=== PATIENT | female | born 1945 | race Caucasian/White ===

== ENCOUNTER 2021-03-27 10:06 | Outpatient (REF) | payer OTHER, SELFPAY ==
[2021-03-27 11:54] LABS: Alanine Aminotransferase 12 U/L (0-31); Albumin Level 4.4 g/dL (3.5-5.0); Alkaline Phosphatase 125 U/L (39-117); Anion Gap 14 (12-20); Aspartate Amino Transferase 20 U/L (5-31); Blood Urea Nitrogen 16 mg/dL (9-16); Calcium 9.7 mg/dL (8.4-10.2); Carbon Dioxide 30 mmol/L (22-29); Chloride 100 mmol/L (96-108); Cholesterol 156 mg/dL; Estimated Glomerular Filt Rate > 60; Glucose Fasting 141 mg/dL (60-99); HDL Cholesterol 59 mg/dL; LDL Cholesterol Calculated 74 mg/dl; Potassium 3.9 mmol/L (3.3-5.1); Sodium 140 mmol/L (135-145); Triglycerides 115 mg/dL
[2021-03-27 12:57] LABS: Estimated Average Glucose 143 mg/dL; Hemoglobin A1c % 6.6 %
== END 2021-03-27 10:07 | disposition home or self-care (01) ==
LOC: HO.HMGCLDS 10:06
PROVIDERS: PCP Internal Medicine; Visit Provider Internal Medicine
DX: E78.5 Hyperlipidemia, unspecified (principal); I10 Essential (primary) hypertension; E11.9 Type 2 diabetes mellitus without complications
CPT/HCPCS: 36415; 80053; 80061; 83036

== ENCOUNTER 2021-04-04 12:46 | Outpatient (REF) | payer OTHER, SELFPAY ==
[2021-04-04 14:01] LABS: Hemoglobin 14.6 g/dl (12.0-16.0); Mean Corpuscular HGB Conc 32.4 g/dl (31.0-35.0); Mean Corpuscular Hemoglobin 30.4 pg (27.0-33.0); Mean Corpuscular Volume 93.6 fL (80-98); Mean Platelet Volume 9.1 fL (9.4-12.3); Platelet Count 385 X10*3/uL (160-400); Red Blood Count 4.81 X10*6/uL (4.20-5.50); Red Cell Distribution Width 12.4 % (11.0-16.0); White Blood Count 11.9 X10*3/uL (4.8-10.8)
== END 2021-04-04 12:47 | disposition home or self-care (01) ==
LOC: HO.HMGCLDS 12:46
PROVIDERS: PCP Internal Medicine; Visit Provider Internal Medicine
DX: E78.5 Hyperlipidemia, unspecified (principal); I10 Essential (primary) hypertension; R63.4 Abnormal weight loss
CPT/HCPCS: 36415; 84443; 85027

== ENCOUNTER 2021-04-29 11:04 | Outpatient (REF) | payer OTHER, SELFPAY ==
[2021-05-02 00:57] LABS: TS Negative Control Passed; TS Panel A 0; TS Panel B 0; TS Positive Control Passed; TSpotTB Negative (SeeBelow)
== END 2021-04-29 11:05 | disposition home or self-care (01) ==
LOC: HO.HMGCLDS 11:04
PROVIDERS: PCP Internal Medicine; Visit Provider Internal Medicine
DX: Z11.1 Encounter for screening for respiratory tuberculosis (principal)
CPT/HCPCS: 36415; 86481

== ENCOUNTER 2021-07-31 09:44 | Outpatient (REF) | payer OTHER, SELFPAY ==
[2021-07-31 12:02] LABS: Estimated Average Glucose 151 mg/dL; Hemoglobin A1c % 6.9 %
[2021-07-31 12:07] LABS: Alanine Aminotransferase 15 U/L (0-31); Alkaline Phosphatase 117 U/L (39-117); Anion Gap 15 (12-20); Aspartate Amino Transferase 20 U/L (5-31); Bilirubin Total 0.6 mg/dL (0.0-1.0); Blood Urea Nitrogen 23 mg/dL (9-16); Calcium 9.7 mg/dL (8.4-10.2); Carbon Dioxide 27 mmol/L (22-29); Chloride 103 mmol/L (96-108); Cholesterol 163 mg/dL; Estimated Glomerular Filt Rate > 60; Glucose Fasting 148 mg/dL (60-99); HDL Cholesterol 58 mg/dL; LDL Cholesterol Calculated 80 mg/dl; Potassium 4.2 mmol/L (3.3-5.1); Sodium 141 mmol/L (135-145); Total Protein 7.2 g/dL (6.5-8.0); Triglycerides 129 mg/dL
== END 2021-07-31 09:45 | disposition home or self-care (01) ==
LOC: HO.HMGCLDS 09:44
PROVIDERS: PCP Internal Medicine; Visit Provider Internal Medicine
DX: E11.9 Type 2 diabetes mellitus without complications (principal); E78.5 Hyperlipidemia, unspecified; I10 Essential (primary) hypertension
CPT/HCPCS: 36415; 80053; 80061; 83036

== ENCOUNTER 2021-08-01 13:05 | Outpatient (REF) | payer OTHER, SELFPAY ==
[2021-08-01 14:30] LABS: Creatinine Urine 130.25 mg/dL; Microalbum/Creatinine Ratio Ur 5.3 ug/mg cr
== END 2021-08-01 13:06 | disposition home or self-care (01) ==
LOC: HO.HMGCLNP 13:05
PROVIDERS: Visit Provider Internal Medicine
DX: E11.9 Type 2 diabetes mellitus without complications (principal); E78.5 Hyperlipidemia, unspecified; I10 Essential (primary) hypertension
CPT/HCPCS: 82043

== ENCOUNTER 2021-08-16 11:30 | Outpatient (REF) | payer OTHER, SELFPAY | END 2021-08-16 11:31 | disposition home or self-care (01) | LOC: HO.LNP 11:30 | PROVIDERS: Visit Provider Internal Medicine | DX: R19.7 Diarrhea, unspecified (principal) | CPT/HCPCS: 87329 ==

== ENCOUNTER 2021-08-19 | Outpatient (REF) | payer OTHER, SELFPAY | END 2021-08-19 00:01 | LOC: HO.HMGCLNP | PROVIDERS: Visit Provider Internal Medicine | DX: E11.9 Type 2 diabetes mellitus without complications (principal); R19.7 Diarrhea, unspecified | CPT/HCPCS: 87045; 87046; 87329; 89055 ==

== ENCOUNTER 2021-09-30 10:00 | Outpatient (REF) | payer OTHER, SELFPAY ==
[2021-09-30 11:59] LABS: Hematocrit 41.2 % (37.0-47.0); Mean Corpuscular HGB Conc 31.6 g/dl (31.0-35.0); Mean Corpuscular Hemoglobin 29.9 pg (27.0-33.0); Mean Corpuscular Volume 94.7 fL (80.0-98.0); Platelet Count 384 X10*3/uL (160-400); Red Blood Count 4.35 X10*6/uL (4.20-5.50); Red Cell Distribution Width 13.7 % (11.0-16.0); White Blood Count 11.1 X10*3/uL (4.8-10.8)
[2021-09-30 12:01] LABS: Alanine Aminotransferase 20 U/L (0-31); Alkaline Phosphatase 116 U/L (39-117); Anion Gap 12 (12-20); Aspartate Amino Transferase 19 U/L (5-31); Bilirubin Total 0.5 mg/dL (0.0-1.0); Blood Urea Nitrogen 20 mg/dL (9-16); Calcium 9.6 mg/dL (8.4-10.2); Carbon Dioxide 30 mmol/L (22-29); Chloride 100 mmol/L (96-108); Estimated Glomerular Filt Rate > 60; Glucose Fasting 143 mg/dL (60-99); Potassium 3.6 mmol/L (3.3-5.1); Sodium 138 mmol/L (135-145)
[2021-09-30 12:25] LABS: Estimated Average Glucose 148 mg/dL; Hemoglobin A1c % 6.8 %
== END 2021-09-30 10:01 | disposition home or self-care (01) ==
LOC: HO.HMGCLDS 10:00
PROVIDERS: Visit Provider Internal Medicine
DX: E11.9 Type 2 diabetes mellitus without complications (principal); E78.5 Hyperlipidemia, unspecified; I10 Essential (primary) hypertension
CPT/HCPCS: 36415; 80053; 83036; 85027

== ENCOUNTER 2021-10-04 10:10 | Outpatient (REF) | payer OTHER, SELFPAY ==
[2021-10-04 12:23] LABS: Leukocytes Stool Qualitative NEGATIVE (NEGATIVE)
== END 2021-10-04 10:11 | disposition home or self-care (01) ==
LOC: HO.HMGCLNP 10:10
PROVIDERS: Visit Provider Internal Medicine
DX: E11.9 Type 2 diabetes mellitus without complications (principal); R19.7 Diarrhea, unspecified
CPT/HCPCS: 87329; 89055

== ENCOUNTER → 2021-10-15 09:53 | Outpatient (BNVA) | payer OTHER, SELFPAY | PROVIDERS: PCP Internal Medicine; Visit Provider Dietitian, Registered | DX: E11.9 Type 2 diabetes mellitus without complications (principal) | CPT/HCPCS: 97802 ==

== ENCOUNTER 2021-10-22 09:26 | Outpatient (RCR) | payer OTHER, SELFPAY ==
--- NOTE | 2021-10-22 10:47 | MHC.PT.EP ---
[facility] [place] Office [place] Office [place] Office [address] [phone] F: [phone] F: [phone] F: [phone] F: [phone] Physical Therapy Plan of Care Date of Evaluation: Date of Surgery: Diagnosis: balance disorder. Assessment: Patient is a 75 year old R handed female who presents with s/s consistent with balance disorder. Pt is non-verbal with some difficulty hearing and following commands and cues. Patient past medical history also includes weight loss and osteoporosis, as well as cognitive limitations. Current impairments include balance, strength, activity tolerance and functional mobility. Functional limitations include decreased ability to walker longer distances or at preferred speeds. At this time, we decided to continue exclusively with HEP due to difficulty following commands and complying to intervention requests. There is also seemingly an element of anxiety with being in our office. I discussed this at length with the caretake and issued HEP with instructions for performance. I will follow up in 2 weeks to assess usefulness, compliance, etc. Frequency and Duration: The patient will be seen Pt will continued exclusively with HEP. Short Term Goals: I with HEP - 2 week follow up via phone. Senior Living Goals: Treatment Plan: Modalities to reduce pain, spasms and effusion. Manual therapy to restore motion and function. Therapeutic exercise to improve strength and flexibility. Neuromuscular re-education for posture and balance. Therapeutic activities to return to functional activities of daily living. Electronically signed by: Fady Owens PT Please sign and return to therapist. Thank you for your referral.
--- NOTE | 2022-04-03 10:11 | MHC.PT.DC ---
[facility] [place] Office [place] Office [place] Office [address] Emmy Duncan [address] [phone] F: [phone] F: [phone] F: [phone] F: [phone] Physical Therapy Discharge Report Diagnosis: balance disorder. Date of Surgery: Date of Evaluation: 10/22/21 Date of Discharge: 12/04/21 Treatments to Date: 1 Cancellations to Date: No Shows to Date: Discharge Status: Independent with HEP Discharge Summary: Patient is a 75 year old R handed female who presents with s/s consistent with balance disorder. Pt is non-verbal with some difficulty hearing and following commands and cues. Patient past medical history also includes weight loss and osteoporosis, as well as cognitive limitations. Current impairments include balance, strength, activity tolerance and functional mobility. Functional limitations include decreased ability to walker longer distances or at preferred speeds. At this time, we decided to continue exclusively with HEP due to difficulty following commands and complying to intervention requests. There is also seemingly an element of anxiety with being in our office. I discussed this at length with the caretake and issued HEP with instructions for performance. I will follow up in 2 weeks to assess usefulness, compliance, etc. Electronically signed by: Fady Owens PT Please sign and return to therapist. Thank you for your referral.
== END 2022-04-03 10:11 | disposition home or self-care (01) ==
LOC: HO.PTCHIC 09:26
PROVIDERS: PCP Internal Medicine; Visit Provider Internal Medicine
DX: R26.89 Other abnormalities of gait and mobility (principal)
CPT/HCPCS: 97110; 97163

== ENCOUNTER → 2021-11-06 11:22 | Outpatient (BNVA) | payer OTHER, SELFPAY | PROVIDERS: PCP Internal Medicine; Visit Provider Dietitian, Registered | DX: E11.9 Type 2 diabetes mellitus without complications (principal); Z71.3 Dietary counseling and surveillance | CPT/HCPCS: 97803 ==

== ENCOUNTER → 2022-01-15 11:34 | Outpatient (BNVA) | payer OTHER, SELFPAY | PROVIDERS: PCP Internal Medicine; Visit Provider Dietitian, Registered | DX: R63.6 Underweight (principal); Z68.1 Body mass index [BMI] 19.9 or less, adult; E11.9 Type 2 diabetes mellitus without complications; Z71.3 Dietary counseling and surveillance | CPT/HCPCS: 97803 ==

== ENCOUNTER → 2022-02-05 10:13 | Outpatient (BNVA) | payer OTHER, SELFPAY | PROVIDERS: PCP Internal Medicine; Visit Provider Dietitian, Registered | DX: R63.6 Underweight (principal); Z68.1 Body mass index [BMI] 19.9 or less, adult; E11.9 Type 2 diabetes mellitus without complications; Z71.3 Dietary counseling and surveillance | CPT/HCPCS: 97803 ==

== ENCOUNTER 2022-02-10 14:34 | Emergency (ER) | payer OTHER, SELFPAY ==
--- NOTE | ~2022-02-10 | XR_ITS ---
EXAMINATION: XR CHEST CLINICAL INFORMATION: Hypoxia. Cough. COMPARISON: None TECHNIQUE: Frontal portable view of the chest was obtained. 4:49 PM FINDINGS: No significant abnormality is noted involving the heart, lungs, mediastinum, bony thorax or soft tissues. XR/XR chest 1V IMPRESSION: Unremarkable examination.
[2022-02-10 15:02] VITALS: PULSE 138; RESP 18; TEMP 37.6; O2SAT 100; O2SAT 96; BMI 14.4
--- NOTE | 2022-02-10 15:20 | ED.GENADULT ---
HPI - General Adult General Chief complaint: General Medical Stated complaint: BLUE LIPS Time Seen by Provider: 02/10/22 14:57 Source: EMS and old records reviewed Mode of arrival: EMS Limitations: other ( Intellectual disability) History of Present Illness HPI narrative: 76-year-old female with history of intellectual disability, diabetes, hypertension, hyperlipidemia who presents to the ER for evaluation from her adult daycare center for evaluation of blue lips, nose, fingers. This reportedly was acute onset while she was at daycare and her oxygen saturations were found to be 70% at that time. EMS was called. She slowly improved into the middle 80s when she sat down. By the time EMS arrived she was saturating 100% on room air. Her coloration had improved to normal. Patient was in no distress. Patient was brought to the ER for further evaluation. MD complaint: Blue lips nose and fingers. Onset (ago): minute(s) Location: face, mouth, left, right and upper extremity Pain Consistency: now resolved Relieving factors: none Exacerbating factors: none Associated symptoms: denies other symptoms Treatments prior to arrival: none Related Data Previous Rx's Medication Instructions Recorded ibuprofen 200 mg tablet 200 mg PO Q6H PRN pain #30 tabs 07/10/21 aspirin 81 mg tablet,delayed 81 mg PO DAILY #90 tabs 07/11/21 release atorvastatin 10 mg tablet 10 mg PO DAILY #90 tabs 07/11/21 calcium carbonate 200 mg calcium 200 mg PO QID #120 tabs 07/11/21 (500 mg) chewable tablet (Calcium Antacid) cholecalciferol (vitamin D3) 25 25 mcg PO DAILY #90 tabs 07/11/21 mcg (1,000 unit) tablet lisinopril 10 mg tablet 10 mg PO DAILY #90 tabs 07/11/21 sitagliptin 25 mg tablet 25 mg PO DAILY #90 tabs 07/11/21 methylcellulose (laxative) 2 g PO DAILY PRN diarrhea #507 08/05/21 (Citrucel Sugar Free oral powder) grams miscellaneous medical supply 1 ea miscellaneous .QD pull ups 08/20/21 small, use up to 6/day #60 ea mirtazapine 7.5 mg tablet 7.5 mg PO BEDTIME #30 tabs 10/01/21 diaper,brief,adult,disposable #60 ea 10/11/21 dextromethorphan-guaifenesin 10 10 ml PO Q4H PRN cough #237 mL 10/18/21 mg-200 mg/5 mL oral liquid (Diabetic Tussin DM) triamcinolone acetonide 0.1 % 1 appl topical BID #80 grams 10/18/21 topical cream nutritional supplement-fiber oral 1 ea PO .QD #3,960 mL 11/12/21 liquid (Ensure Plant-Based Protein oral liquid) Allergies Allergy/AdvReac Type Severity Reaction Status Date / Time nut. tx, glucose Allergy Headaches Verified 01/28/22 11:37 intolerance,lactose-free,soy [From Glucerna] nutritional therapy, glucose Allergy Headaches Verified 01/28/22 11:37 intolerance,soy [From Glucerna] Review of Systems Review of Systems: . Yes Unobtainable due to mental condition and Unobtainable due to mental status PMFSH Past Medical History Medical History Balance disorder Diarrhea Eczema HTN (hypertension) Hyperlipidemia Mental dysfunction Osteoporosis Superficial bruising of lower leg Type 2 diabetes mellitus Weight loss Surgical History H/O colonoscopy Social History Social History Housing: Assisted Living Facility Alcohol intake: never Patient Tobacco Use Status: Never used Tobacco e-Cigarette/Vaping Use: Never Used Advance Directives: No Advance Directives Information Provided: No Current occupational status: disabled Physical Exam ED Vital Signs: Vital Signs - 24 hr 02/10/22 15:02 02/10/22 17:23 Temperature 99.7 F 97.9 F Pulse Rate 138 H 112 H Respiratory Rate 18 18 Blood Pressure 139/75 Pulse Oximetry 96 96 Oxygen Delivery Method Room Air Room Air BMI result Body Mass Index 14.4 Appearance: Alert, frail, cachectic elderly female, restless, no distress Eyes: Pupils equal, round and reactive to light. ENT: Pharynx with moist mucous membranes, no dentition present. Neck: Normal inspection. Neck supple. CVS: Tachycardic, regular rhythm, no murmur appreciated. Pulses normal. Respiratory: No respiratory distress. Breath sounds normal. Abdomen:flat, soft and nontender. +BS x4 Skin: Skin warm and dry. Normal skin color. Normal skin turgor. No rashes. Extremities: Thin, frail, cachectic. No peripheral cyanosis Neuro: awake and alert, nonverbal, moves all extremities equally, steady gait. Course Course Course Narrative: 76-year-old female with history of intellectual disability with a baseline mentation of a 69-year-old child, history of diabetes, HTN, HLD who presents to the ER for evaluation of cyanosis and hypoxia that was transient while at her adult daycare. SpO2 100% for EMS on room air. On arrival to ER her oxygen saturations 96%. Her lungs are clear with no difficulty breathing. She is tachycardic to the 130s, clearly anxious and out of her element. Will start with a chest x-ray an EKG. Will monitor closely. Reevaluation(s) Reevaluation #1: Staff member from her care home is at the bedside. She reports the patient has had a junky cough for the last few days. She has had no fevers or difficulty breathing. Overall she has had a decrease in her p.o. intake and about to 7-8 lb weight loss, down to 60 lb from 68. Patient refusing to go to chest x-ray. She is anxious and unwilling to go with staff. Will reassess once more calm. Reevaluation #2: able to get a one-view chest x-ray, no overt pneumonia. No recurrent episodes of hypoxia / cyanosis well observed for 2-1/2 hours in the emergency department. COVID swab has been sent. Anticipate discharge back to her group Critical Care Time Critical Care Time Critical Care Time: No Discharge Plan Discharge Clinical Impression: Hypoxia Patient Disposition: Xfer Other Transfer Details: care home with staff Instructions: Hypoxia (ED) Additional Instructions: No recurrent episodes of low oxygen were observed in the hour spent in the emergency department. Her oxygen levels remained normal at 96%. It is possible that her transiently low levels of oxygen were due to some mucus plugging with her junky cough. Her chest x-ray did not show any pneumonia. Her COVID test was negative. Recommend ksyw-bed-yglnaoa Mucinex to help thin any mucus it could be contributing to this. Recommend following up with her doctor this week. If you develop new or worsening symptoms call 911 or come back to the ER for further evaluation. Prescriptions: No Action ibuprofen 200 mg tablet 200 mg PO Q6H PRN (Reason: pain) Qty: 30 0RF atorvastatin 10 mg tablet 10 mg PO DAILY Qty: 90 3RF aspirin 81 mg tablet,delayed release (DR/EC) 81 mg PO DAILY Qty: 90 3RF calcium carbonate [Calcium Antacid] 200 mg calcium (500 mg) tablet,chewable 200 mg PO QID Qty: 120 6RF cholecalciferol (vitamin D3) 25 mcg (1,000 unit) tablet 25 mcg PO DAILY Qty: 90 3RF lisinopril 10 mg tablet 10 mg PO DAILY Qty: 90 3RF sitagliptin 25 mg tablet 25 mg PO DAILY Qty: 90 3RF Citrucel Sugar Free Powder 2 g PO DAILY PRN (Reason: diarrhea) Qty: 507 0RF miscellaneous medical supply Misc 1 ea miscellaneous .QD Qty: 60 2RF (DME) diaper,brief,adult,disposable Misc See Rx Instructions .Route Qty: 60 11RF Rx Instructions: As directed for incontinence, use up to 6 per day-SIZE SMALL Diabetic Tussin DM 10-200 mg/5 mL liquid 10 ml PO Q4H PRN (Reason: cough) Qty: 237 0RF triamcinolone acetonide 0.1 % cream 1 appl topical BID Qty: 80 1RF Ensure Plant-Based Protein Liquid 1 ea PO .QD Qty: 3960 4RF mirtazapine 7.5 mg tablet 7.5 mg PO BEDTIME Qty: 30 4RF Referrals: Sendy Atwood MD [Primary Care Provider] -
[2022-02-10 17:23] VITALS: BP 139/75; PULSE 112; RESP 18; TEMP 36.6; O2SAT 96
[2022-02-10 17:59] LABS: COVID-19 Test Negative (Negative)
[2022-02-10 18:38] VITALS: PULSE 116; TEMP 36.7; O2SAT 97
== END 2022-02-10 19:44 | disposition other institution (70) ==
PROVIDERS: Physician Assistant; Emergency Provider Student in an Organized Health Care Education/Training Program; PCP Internal Medicine
DX: R09.02 Hypoxemia (principal); Z79.899 Other long term (current) drug therapy; Z20.822 Contact with and (suspected) exposure to COVID-19
CPT/HCPCS: 71045; 87635; 99283

== ENCOUNTER 2022-02-22 09:53 | Outpatient (REF) | payer OTHER, SELFPAY ==
[2022-02-22 11:29] LABS: Appearance Urine CLEAR; Color Urine YELLOW; Glucose Urine UA NEG (NEG); Leukocyte Esterase Urine TRACE (NEG); Nitrite Urine NEG (NEG); Specific Gravity - Urine <= 1.005 (1.005-1.025); Urine Blood NEG (NEG); Urine Ketones NEG (NEG); Urine Protein NEG (NEG-TRACE)
[2022-02-22 11:56] LABS: RBC Urine 0 /HPF (0); Renal Epithelial Cells Urine 2+ /LPF; Squamous Epithelial Cell Urine 2+ /LPF; WBC Urine 0-2 /HPF (0-4)
== END 2022-02-22 09:54 | disposition home or self-care (01) ==
LOC: HO.HMGCLDS 09:53
PROVIDERS: PCP Internal Medicine; Visit Provider Internal Medicine
DX: E78.5 Hyperlipidemia, unspecified (principal); I10 Essential (primary) hypertension; E11.9 Type 2 diabetes mellitus without complications
CPT/HCPCS: 81001

== ENCOUNTER 2022-02-24 14:55 | Outpatient (REF) | payer OTHER, SELFPAY ==
[2022-02-24 16:34] LABS: Appearance Urine CLEAR; Color Urine YELLOW; Glucose Urine UA Negative (NEG); Leukocyte Esterase Urine NEG (Negative); Nitrite Urine NEG (NEG); Urine Blood Negative (NEG); Urine Ketones Negative (NEG); Urine Protein Negative (NEG-TRACE)
== END 2022-02-24 14:56 | disposition home or self-care (01) ==
LOC: HO.HMGCLNP 14:55
PROVIDERS: PCP Internal Medicine; Visit Provider Internal Medicine
DX: E78.5 Hyperlipidemia, unspecified (principal); I10 Essential (primary) hypertension; E11.9 Type 2 diabetes mellitus without complications
CPT/HCPCS: 81003

== ENCOUNTER 2022-03-14 10:27 | Outpatient (REF) | payer OTHER, SELFPAY ==
--- NOTE | ~2022-03-14 | US_ITS ---
EXAMINATION: US ABDOMEN LIMITED CLINICAL INFORMATION: Right upper quadrant pain. Rule out gallstones. COMPARISON: None TECHNIQUE: Real-time imaging of the right upper quadrant abdominal viscera. Severely limited study due to patient's limitations. FINDINGS: PANCREAS: Obscured by overlying bowel gas. LIVER: The visualized portions appear unremarkable without intrahepatic bile duct dilatation or abnormal mass. GALLBLADDER: Normal. The gallbladder is physiologically distended without evidence of stones, sludge, polyps, wall thickening or pericholecystic fluid. COMMON BILE DUCT: Normal in caliber measuring 0.2 cm in diameter. RIGHT KIDNEY: Normal. No hydronephrosis. No renal calculi or focal parenchymal lesions. The kidney measures 8.9 cm in maximum dimension. FREE FLUID: None. US/US abdomen limited IMPRESSION: No evidence of acute cholecystitis.
== END 2022-03-14 10:28 | disposition home or self-care (01) ==
LOC: HO.HMGCX 10:27
PROVIDERS: PCP Internal Medicine; Visit Provider Internal Medicine
DX: R10.11 Right upper quadrant pain (principal)
CPT/HCPCS: 76705

== ENCOUNTER → 2022-03-25 13:05 | Outpatient (BNVA) | payer OTHER, SELFPAY | PROVIDERS: PCP Internal Medicine; Visit Provider Dietitian, Registered | DX: E11.9 Type 2 diabetes mellitus without complications (principal); R63.6 Underweight; Z68.1 Body mass index [BMI] 19.9 or less, adult; Z71.3 Dietary counseling and surveillance | CPT/HCPCS: 97803 ==

== ENCOUNTER 2022-03-28 09:39 | Outpatient (REF) | payer OTHER, SELFPAY ==
[2022-03-28 11:16] LABS: MANUAL DIFF FLAG NO
[2022-03-28 11:28] LABS: Basophils Percent Auto 0.4 % (0-2); Eosinophils Absolute Auto 0.1 X10*3/uL (0.0-0.4); Eosinophils Percent Auto 1.1 % (0-4); Hematocrit 40.3 % (37.0-47.0); Hemoglobin 12.8 g/dl (12.0-16.0); Imm Gran Abs Auto 0.03 X10*3/uL (0.00-0.03); Imm Gran Pct Auto 0.3 % (0.0-0.4); Lymphocytes Absolute Auto 1.1 X10*3/uL (1.2-4.9); Lymphocytes Percent Auto 12.1 % (20-40); Mean Corpuscular HGB Conc 31.8 g/dl (31.0-35.0); Mean Corpuscular Hemoglobin 29.9 pg (27.0-33.0); Mean Corpuscular Volume 94.2 fL (80.0-98.0); Mean Platelet Volume 8.9 fL (9.4-12.3); Monocytes Absolute Auto 0.7 X10*3/uL (0.1-1.2); Monocytes Percent Auto 7.1 % (2-11); Neutrophils Absolute Auto 7.3 x10*3/uL (2.0-8.3); Platelet Count 365 X10*3/uL (160-400); Red Blood Count 4.28 X10*6/uL (4.20-5.50); White Blood Count 9.3 X10*3/uL (4.8-10.8)
[2022-03-28 11:41] LABS: Estimated Average Glucose 151 mg/dL; Hemoglobin A1c % 6.9 %
[2022-03-28 11:50] LABS: Alanine Aminotransferase 21 U/L (0-31); Albumin Level 3.9 g/dL (3.5-5.0); Alkaline Phosphatase 111 U/L (39-117); Anion Gap 18 (12-20); Aspartate Amino Transferase 26 U/L (5-31); Bilirubin Total 0.3 mg/dL (0.0-1.0); Blood Urea Nitrogen 18 mg/dL (9-16); Calcium 9.6 mg/dL (8.4-10.2); Carbon Dioxide 28 mmol/L (22-29); Chloride 99 mmol/L (96-108); Estimated Glomerular Filt Rate > 60; Glucose Fasting 122 mg/dL (60-99); Potassium 3.9 mmol/L (3.3-5.1); Sodium 141 mmol/L (135-145); Total Protein 7.1 g/dL (6.5-8.0)
[2022-03-28 12:12] LABS: TSH reflex Free T4 0.96 uIU/mL (0.32-4.0)
[2022-04-01 18:11] LABS: Endomysial IgA Antibody Negative (Negative)
== END 2022-03-28 09:40 | disposition home or self-care (01) ==
LOC: HO.HMGCLDS 09:39
PROVIDERS: PCP Internal Medicine; Visit Provider Internal Medicine
DX: E78.5 Hyperlipidemia, unspecified (principal); R63.4 Abnormal weight loss; I10 Essential (primary) hypertension; E11.9 Type 2 diabetes mellitus without complications; R10.11 Right upper quadrant pain; R19.7 Diarrhea, unspecified
CPT/HCPCS: 36415; 80053; 83036; 84443; 85025; 86231

== ENCOUNTER 2022-09-30 10:10 | Outpatient (REF) | payer OTHER, SELFPAY ==
[2022-09-30 12:02] LABS: Estimated Average Glucose 160 mg/dL; Hemoglobin A1c % 7.2 %
[2022-09-30 12:21] LABS: Alanine Aminotransferase 14 U/L (0-31); Albumin Level 3.7 g/dL (3.5-5.0); Alkaline Phosphatase 131 U/L (39-117); Anion Gap 14 (12-20); Aspartate Amino Transferase 18 U/L (5-31); Bilirubin Total 0.4 mg/dL (0.0-1.0); Blood Urea Nitrogen 19 mg/dL (9-16); Carbon Dioxide 26 mmol/L (22-29); Chloride 104 mmol/L (96-108); Cholesterol 144 mg/dL; Estimated Glomerular Filt Rate > 60; Glucose Fasting 141 mg/dL (60-99); HDL Cholesterol 50 mg/dL; LDL Cholesterol Calculated 78 mg/dl; Potassium 3.9 mmol/L (3.3-5.1); Sodium 140 mmol/L (135-145); Total Protein 6.5 g/dL (6.5-8.0); Triglycerides 81 mg/dL
== END 2022-09-30 10:11 | disposition home or self-care (01) ==
LOC: HO.HMGCLDS 10:10
PROVIDERS: PCP Internal Medicine; Visit Provider Internal Medicine
DX: E11.9 Type 2 diabetes mellitus without complications (principal); E78.5 Hyperlipidemia, unspecified; I10 Essential (primary) hypertension
CPT/HCPCS: 36415; 80053; 80061; 83036

== ENCOUNTER 2022-11-17 09:40 | Outpatient (REF) | payer OTHER, SELFPAY ==
[2022-11-17 11:17] LABS: MANUAL DIFF FLAG NO
[2022-11-17 11:38] LABS: Basophils Absolute Auto 0.1 X10*3/uL (0.0-0.2); Basophils Percent Auto 0.6 % (0-2); Eosinophils Absolute Auto 0.1 X10*3/uL (0.0-0.4); Eosinophils Percent Auto 0.7 % (0-4); Hematocrit 40.3 % (37.0-47.0); Hemoglobin 12.7 g/dl (12.0-16.0); Imm Gran Abs Auto 0.03 X10*3/uL (0.00-0.03); Imm Gran Pct Auto 0.3 % (0.0-0.4); Lymphocytes Absolute Auto 1.2 X10*3/uL (1.2-4.9); Lymphocytes Percent Auto 13.7 % (20-40); Mean Corpuscular HGB Conc 31.5 g/dl (31.0-35.0); Mean Corpuscular Hemoglobin 29.1 pg (27.0-33.0); Mean Corpuscular Volume 92.2 fL (80.0-98.0); Mean Platelet Volume 8.9 fL (9.4-12.3); Monocytes Absolute Auto 0.8 X10*3/uL (0.1-1.2); Monocytes Percent Auto 8.8 % (2-11); Neutrophils Absolute Auto 6.9 x10*3/uL (2.0-8.3); Neutrophils Percent Auto 75.9 % (45-73); Platelet Count 434 X10*3/uL (160-400); Red Blood Count 4.37 X10*6/uL (4.20-5.50); Red Cell Distribution Width 13.2 % (11.0-16.0)
[2022-11-17 11:56] LABS: Estimated Average Glucose 174 mg/dL; Hemoglobin A1c % 7.7 %
[2022-11-17 12:48] LABS: Alanine Aminotransferase 21 U/L (0-31); Albumin Level 3.7 g/dL (3.5-5.0); Alkaline Phosphatase 123 U/L (39-117); Anion Gap 16 (12-20); Aspartate Amino Transferase 19 U/L (5-31); Bilirubin Total 0.4 mg/dL (0.0-1.0); Blood Urea Nitrogen 17 mg/dL (9-16); Calcium 9.3 mg/dL (8.4-10.2); Carbon Dioxide 26 mmol/L (22-29); Chloride 103 mmol/L (96-108); Cholesterol 128 mg/dL; Estimated Glomerular Filt Rate > 60; Glucose Fasting 156 mg/dL (60-99); HDL Cholesterol 39 mg/dL; LDL Cholesterol Calculated 54 mg/dl; Potassium 4.3 mmol/L (3.3-5.1); Sodium 141 mmol/L (135-145); Total Protein 6.6 g/dL (6.5-8.0); Triglycerides 175 mg/dL; Vitamin D 25-OH Total 64.5 ng/mL (>30)
== END 2022-11-17 09:41 | disposition home or self-care (01) ==
LOC: HO.HMGCLDS 09:40
PROVIDERS: PCP Internal Medicine; Visit Provider Internal Medicine
DX: E11.9 Type 2 diabetes mellitus without complications (principal); E55.9 Vitamin D deficiency, unspecified; I10 Essential (primary) hypertension
CPT/HCPCS: 36415; 80053; 80061; 82306; 83036; 84443; 85025

== ENCOUNTER 2022-12-23 09:41 | Outpatient (REF) | payer OTHER, SELFPAY ==
--- NOTE | ~2022-12-23 | XR_ITS ---
EXAMINATION: 1. RADIOGRAPHS RIGHT ANKLE 2. RADIOGRAPHS LEFT ANKLE CLINICAL INFORMATION: Bilateral ankle pain COMPARISON: None TECHNIQUE: 2 views of each ankle were obtained. FINDINGS: Right ankle: Visualized portion of the distal tibia and fibula demonstrate no fracture. There is no focal soft tissue swelling of the ankle. No gross ankle joint effusion. Left ankle: Visualized portion of the distal tibia and fibula demonstrate no fracture. No focal soft tissue swelling of the ankle. No gross ankle joint effusion. XR/XR ankle RT 2V IMPRESSION: Unremarkable radiographs of the bilateral ankles.
--- NOTE | ~2022-12-23 | XR_ITS ---
EXAMINATION: 1. RADIOGRAPHS RIGHT ANKLE 2. RADIOGRAPHS LEFT ANKLE CLINICAL INFORMATION: Bilateral ankle pain COMPARISON: None TECHNIQUE: 2 views of each ankle were obtained. FINDINGS: Right ankle: Visualized portion of the distal tibia and fibula demonstrate no fracture. There is no focal soft tissue swelling of the ankle. No gross ankle joint effusion. Left ankle: Visualized portion of the distal tibia and fibula demonstrate no fracture. No focal soft tissue swelling of the ankle. No gross ankle joint effusion. XR/XR ankle LT 2V IMPRESSION: Unremarkable radiographs of the bilateral ankles.
== END 2022-12-23 09:42 | disposition home or self-care (01) ==
LOC: HO.HMGCX 09:41
PROVIDERS: PCP Internal Medicine; Visit Provider Internal Medicine
DX: M25.571 Pain in right ankle and joints of right foot (principal); M25.572 Pain in left ankle and joints of left foot
CPT/HCPCS: 73600

== ENCOUNTER 2023-03-24 12:41 | Outpatient (AMB) | payer OTHER, SELFPAY ==
[2023-03-24 12:42] VITALS: BP 120/74; PULSE 94; O2SAT 92; BMI 12.8
--- NOTE | 2023-03-24 12:42 | A.OFFPC_ITS ---
Vital Signs 03/24/23 12:42 Height 4 ft 10 in Weight 61 lb 6 oz BMI 12.8 BP 120/74 Blood Pressure Location Lt brachial Position Sitting Pulse 94 Pulse Source Pulse Oximeter Pulse Oximetry (%) 92 Oxygen Delivery Method Room Air Intake Visit Reasons: 4 month follow up Intake Note: Pt is here today for 4 months follow up visit. Allergies acetaminophen [From Tylenol] Allergy (Verified 03/24/23 12:50) Unknown nut. tx, glucose intolerance,lactose-free,soy [From Glucerna] Allergy (Verified 03/24/23 12:50) Headaches nutritional therapy, glucose intolerance,soy [From Glucerna] Allergy (Verified 03/24/23 12:50) Headaches Medication List - Last Reconciled 03/24/23 by Sendy Atwood MD [Adult pull up incontinence briefs As directed] atorvastatin 10 mg PO QPM cholecalciferol (vitamin D3) 25 mcg PO .DAILY in AM lidocaine 5% 1 appl topically daily in am; apply thin layer to knees and ankles lisinopril 10 mg PO .DAILY in AM mirtazapine 15 mg PO BEDTIME multivitamin 1 tab PO DAILY nut.tx.gluc intol,lf,soy-fiber 0.06-1.1 gram-kcal/mL (Boost Glucose Control) ea PO sitagliptin phosphate (Januvia) 50 mg orally daily in am; [wipes Use for skin care after incontinence] zinc oxide 13% apply thin layer as needed 3 times per day as needed to perineal area. Do not exceed 3 applications in 24 hours, apply at least 6 hours apart. Wash skin to remove 2-4 times per day. Contact PCP if no improvement in 5 days topically; Tobacco use date assessed: 03/24/23 Fall risk assessment: No Falls in past year Last assessed Fall Risk: 03/24/23 Dental Screening Dental Screen Date: 03/24/23 Did you have a dental visit in the last 12 months?: No Did you have a dental problem in the last 6 months where you did not have access to dental care?: No Was dental information given to patient?: Patient declined HPI 4 month follow up HPI Details Patient presents for the follow-up on hypertension type 2 diabetes and hyperlipidemia. Patient's staff is concerned about patient having multiple bruises on her legs, without witnessed falling down. Patient has been ambulating without difficulty. [facility] Medical History Balance disorder Diarrhea Eczema HTN (hypertension) Hyperlipidemia Mental dysfunction Osteoporosis Superficial bruising of lower leg Type 2 diabetes mellitus Weight loss Surgical History H/O colonoscopy Social History Housing: Assisted Living Facility Alcohol intake: never Patient Tobacco Use Status: Never used Tobacco e-Cigarette/Vaping Use: Never Used Current occupational status: disabled Cognitive needs: Yes Hearing needs: No Vision needs: No Questionnaire Thrive Questionnaire Date Thrive assessed: 11/19/22 EVONNE-7 AMB Questionnaire EVONNE-7 Date EVONNE - 7 assessed: 11/19/22 Source: Developed by Drs. Amauri North, Jocelyne Singh, Maurice Romero and colleagues, with an educational oralia from [employer]. Review of Systems Const All systems reviewed & are unremarkable except as noted in HPI and below Reports no additional complaints Eyes Reports no additional complaints Card Reports no additional complaints Resp Reports no additional complaints GI Reports no additional complaints Reports no additional complaints Physical exam (Primary Care) Vital Signs: Last Vital Signs Pulse 94 03/24/23 12:42 BP 164/84 H 03/24/23 12:42 Pulse Ox 92 03/24/23 12:42 Oxygen Delivery Method Room Air 03/24/23 12:42 BMI result Body Mass Index 12.8 Tobacco/Smoking Status: Tobacco use Status Tobacco use date assessed 03/24/23 03/24/23 12:56 Patient Tobacco Use Status Never used Tobacco 03/24/23 12:56 e-Cigarette/Vaping Use Never Used 03/24/23 12:56 Thrive Assessment: Date of Thrive Assessment Date Thrive assessed 11/19/22 03/24/23 12:56 Const General: no acute distress HENMT Head: Yes normal to inspection Mouth: Normal oral and palatal mucosa present Neck Neck: Yes supple Resp Effort & Inspection: normal respiratory effort Auscultation: clear to auscultation bilaterally Cardio Rhythm: regular rhythm Heart sounds: S1 normal heart sound present and S2 normal heart sound present GI Inspection: Yes normal to inspection Palpation (GI): Soft to palpation Percussion: Yes normal to percussion Auscultation: normal bowel sounds Assessment and Plan Assessment & Plan (1) Easy bruising: Code(s): R23.3 - Spontaneous ecchymoses Plan: check CBC and start MVI (2) HTN (hypertension): Comment: Continue current medication Code(s): I10 - Essential (primary) hypertension Plan: CONT LISINOPRIL (3) Type 2 diabetes mellitus: Comment: Pt appears to maintain weight with bmi 13.0 13.7 Pt having one nutritional supplement per day Code(s): E11.9 - Type 2 diabetes mellitus without complications Plan: check A1C and ADA diet discussed (4) Hyperlipidemia: Code(s): E78.5 - Hyperlipidemia, unspecified Plan: cont statin Orders: Orders Lipid Panel Today E11.9 - Type 2 diabetes mellitus without complications, E78.5 - Hyperlipidemia, unspecified, I10 - Essential (primary) hypertension, R23.3 - Spontaneous ecchymoses Complete Blood Count Auto Diff Today E11.9 - Type 2 diabetes mellitus without complications, E78.5 - Hyperlipidemia, unspecified, I10 - Essential (primary) hypertension, R23.3 - Spontaneous ecchymoses Comprehensive Verdi. Panel Fast Today E11.9 - Type 2 diabetes mellitus without complications, E78.5 - Hyperlipidemia, unspecified, I10 - Essential (primary) hypertension, R23.3 - Spontaneous ecchymoses TSH reflex Free T4 Today E11.9 - Type 2 diabetes mellitus without complications, E78.5 - Hyperlipidemia, unspecified, I10 - Essential (primary) hypertension, R23.3 - Spontaneous ecchymoses Hemoglobin A1c Today E11.9 - Type 2 diabetes mellitus without complications Medications: New multivitamin 1 tab PO DAILY 90 tabs 3RF Coding Level of Care Code Est Pt Level 4 (41332) Diagnoses Easy bruising R23.3 HTN (hypertension) I10 Type 2 diabetes mellitus E11.9 Hyperlipidemia E78.5
== END 2023-03-24 13:27 | disposition home or self-care (01) ==
PROVIDERS: Visit Provider Internal Medicine
DX: R23.3 Spontaneous ecchymoses (principal); I10 Essential (primary) hypertension; E11.9 Type 2 diabetes mellitus without complications; E78.5 Hyperlipidemia, unspecified
CPT/HCPCS: 99214

== ENCOUNTER 2023-04-07 09:26 | Outpatient (REF) | payer OTHER, SELFPAY ==
[2023-04-07 11:31] LABS: MANUAL DIFF FLAG NO
[2023-04-07 11:41] LABS: Basophils Percent Auto 0.4 % (0-2); Eosinophils Absolute Auto 0.1 X10*3/uL (0.0-0.4); Eosinophils Percent Auto 0.6 % (0-4); Hematocrit 38.4 % (37.0-47.0); Hemoglobin 12.2 g/dl (12.0-16.0); Imm Gran Abs Auto 0.04 X10*3/uL (0.00-0.03); Imm Gran Pct Auto 0.4 % (0.0-0.4); Lymphocytes Absolute Auto 1.4 X10*3/uL (1.2-4.9); Lymphocytes Percent Auto 12.9 % (20-40); Mean Corpuscular HGB Conc 31.8 g/dl (31.0-35.0); Mean Corpuscular Hemoglobin 29.7 pg (27.0-33.0); Mean Corpuscular Volume 93.4 fL (80.0-98.0); Monocytes Percent Auto 9.2 % (2-11); Neutrophils Absolute Auto 8.2 x10*3/uL (2.0-8.3); Neutrophils Percent Auto 76.5 % (45-73); Platelet Count 402 X10*3/uL (160-400); Red Blood Count 4.11 X10*6/uL (4.20-5.50); Red Cell Distribution Width 12.9 % (11.0-16.0); White Blood Count 10.7 X10*3/uL (4.8-10.8)
[2023-04-07 12:02] LABS: Estimated Average Glucose 160 mg/dL; Hemoglobin A1c % 7.2 % (<6.0)
[2023-04-07 13:07] LABS: Alanine Aminotransferase 11 U/L (0-31); Albumin Level 3.9 g/dL (3.5-5.0); Alkaline Phosphatase 120 U/L (39-117); Anion Gap 17 (12-20); Aspartate Amino Transferase 18 U/L (5-31); Bilirubin Total 0.4 mg/dL (0.0-1.0); Blood Urea Nitrogen 21 mg/dL (9-16); Calcium 9.6 mg/dL (8.4-10.2); Carbon Dioxide 25 mmol/L (22-29); Chloride 101 mmol/L (96-108); Cholesterol 119 mg/dL (<200); Estimated Glomerular Filt Rate > 60; Glucose Fasting 148 mg/dL (60-99); HDL Cholesterol 48 mg/dL (>40); LDL Cholesterol Calculated 54 mg/dL (<100); Potassium 3.6 mmol/L (3.3-5.1); Sodium 139 mmol/L (135-145); Triglycerides 85 mg/dL (<150)
[2023-04-07 13:23] LABS: TSH reflex Free T4 0.94 uIU/mL (0.32-4.0)
== END 2023-04-07 09:27 | disposition home or self-care (01) ==
LOC: HO.HMGCLDS 09:26
PROVIDERS: PCP Internal Medicine; Visit Provider Internal Medicine
DX: E11.9 Type 2 diabetes mellitus without complications (principal); R23.3 Spontaneous ecchymoses; I10 Essential (primary) hypertension; E78.5 Hyperlipidemia, unspecified
CPT/HCPCS: 36415; 80053; 80061; 83036; 84443; 85025

== ENCOUNTER 2023-06-22 11:13 | Outpatient (AMB) | payer OTHER, SELFPAY ==
[2023-06-22 11:24] VITALS: BP 94/60; PULSE 53; O2SAT 96
--- NOTE | 2023-06-22 11:24 | MHC.PC.OV ---
Vital Signs 06/22/23 11:24 Height 4 ft 10 in BMI Reason not done Patient refused/unable BP 94/60 Blood Pressure Location Rt brachial Position Sitting Pulse 53 Pulse Source Pulse Oximeter Pulse Oximetry (%) 96 Oxygen Delivery Method Room Air Intake Visit Reasons: ER follow up Intake Note: Pt is here today for ER follow up visit after a fall. Allergies acetaminophen [From Tylenol] Allergy (Verified 06/22/23 11:32) Unknown nut. tx, glucose intolerance,lactose-free,soy [From Glucerna] Allergy (Verified 06/22/23 11:32) Headaches nutritional therapy, glucose intolerance,soy [From Glucerna] Allergy (Verified 06/22/23 11:32) Headaches Tobacco use date assessed: 03/24/23 Fall risk assessment: 1 Fall in past year Last assessed Fall Risk: 06/22/23 Dental Screening Dental Screen Date: 06/22/23 Did you have a dental visit in the last 12 months?: No Did you have a dental problem in the last 6 months where you did not have access to dental care?: No Was dental information given to patient?: Patient declined HPI ER follow up HPI Details Patient presents for the follow-up of ER visit for left foot injury diagnosed with 2nd 3rd 4th and 5th metatarsal fracture 1 week ago. Patient has been wearing orthopedic boot and has not been weight-bearing. She has been taking meloxicam for the pain with good relief. Patient is nonverbal. FORMERLY [facility] Medical History Balance disorder Diarrhea Eczema HTN (hypertension) Hyperlipidemia Mental dysfunction Osteoporosis Superficial bruising of lower leg Type 2 diabetes mellitus Weight loss Surgical History H/O colonoscopy Social History Housing: Assisted Living Facility Alcohol intake: never Patient Tobacco Use Status: Never used Tobacco e-Cigarette/Vaping Use: Never Used Current occupational status: disabled Cognitive needs: Yes Hearing needs: No Vision needs: No Questionnaire Thrive Questionnaire Date Thrive assessed: 11/19/22 EVONNE-7 AMB Questionnaire EVONNE-7 Date EVONNE - 7 assessed: 11/19/22 Source: Developed by Drs. Amauri North, Jocelyne B.W. Maurice Singh and colleagues, with an educational oralia from [employer]. Review of Systems Const All systems reviewed & are unremarkable except as noted in HPI and below Reports no additional complaints Eyes Reports no additional complaints ENT Reports no additional complaints Card Reports no additional complaints Resp Reports no additional complaints GI Reports no additional complaints Reports no additional complaints Physical exam (Primary Care) Vital Signs: Last Vital Signs Pulse 53 06/22/23 11:24 BP 94/60 06/22/23 11:24 Pulse Ox 88 L 06/22/23 11:24 Oxygen Delivery Method Room Air 06/22/23 11:24 Tobacco/Smoking Status: Tobacco use Status Tobacco use date assessed 03/24/23 06/22/23 11:29 Patient Tobacco Use Status Never used Tobacco 06/22/23 11:29 e-Cigarette/Vaping Use Never Used 06/22/23 11:29 Thrive Assessment: Date of Thrive Assessment Date Thrive assessed 11/19/22 06/22/23 11:29 Const General: no acute distress HENMT Head: Yes normal to inspection Neck Neck: Yes supple Resp Effort & Inspection: normal respiratory effort Auscultation: clear to auscultation bilaterally Cardio Rhythm: regular rhythm Heart sounds: S1 normal heart sound present and S2 normal heart sound present GI Inspection: Yes normal to inspection Palpation (GI): Soft to palpation Percussion: Yes normal to percussion Auscultation: normal bowel sounds Assessment and Plan Assessment & Plan (1) Osteoporosis: Code(s): M81.0 - Age-related osteoporosis without current pathological fracture Plan: check DEXA, cont vit D (2) Type 2 diabetes mellitus: Comment: Pt appears to maintain weight with bmi 13.0 13.7 Pt having one nutritional supplement per day Code(s): E11.9 - Type 2 diabetes mellitus without complications Plan: cont ADA diet and Januvia, f/u 1 month with labs (3) HTN (hypertension): Comment: Continue current medication Code(s): I10 - Essential (primary) hypertension Plan: cont Lisinopril (4) Hyperlipidemia: Code(s): E78.5 - Hyperlipidemia, unspecified Plan: cont Lipitor (5) Metatarsal boss of left foot: Comment: 2nd, 3rd, 4th, 5th after a fall 06/04, will see lamination technician Code(s): M25.775 - Osteophyte, left foot Orders: Orders XR DEXA axial skeleton 1 Month E11.9 - Type 2 diabetes mellitus without complications, E78.5 - Hyperlipidemia, unspecified, I10 - Essential (primary) hypertension, M81.0 - Age-related osteoporosis without current pathological fracture Hemoglobin A1c 1 Month E11.9 - Type 2 diabetes mellitus without complications, E78.5 - Hyperlipidemia, unspecified, I10 - Essential (primary) hypertension TSH reflex Free T4 1 Month E11.9 - Type 2 diabetes mellitus without complications, E78.5 - Hyperlipidemia, unspecified, I10 - Essential (primary) hypertension Comprehensive [place]. Panel Fast 1 Month E11.9 - Type 2 diabetes mellitus without complications, E78.5 - Hyperlipidemia, unspecified, I10 - Essential (primary) hypertension Vitamin D 25-OH Total 1 Month E11.9 - Type 2 diabetes mellitus without complications, E78.5 - Hyperlipidemia, unspecified, I10 - Essential (primary) hypertension Medications: Changed From meloxicam 7.5 mg PO DAILY 10 tabs 0RF To meloxicam 7.5 mg PO DAILY PRN 30 tabs 0RF pain, moderate Coding Level of Care Code Est Pt Level 4 (84440) Diagnoses Osteoporosis M81.0 Type 2 diabetes mellitus E11.9 HTN (hypertension) I10 Hyperlipidemia E78.5 Metatarsal boss of left foot M25.708
== END 2023-06-22 13:13 | disposition home or self-care (01) ==
PROVIDERS: PCP Internal Medicine; Visit Provider Internal Medicine
DX: M81.0 Age-related osteoporosis without current pathological fracture (principal); E11.9 Type 2 diabetes mellitus without complications; I10 Essential (primary) hypertension; E78.5 Hyperlipidemia, unspecified; M25.775 Osteophyte, left foot
CPT/HCPCS: 99214

== ENCOUNTER 2023-07-14 18:31 | Emergency (ER) | payer OTHER, SELFPAY ==
--- NOTE | ~2023-07-14 | XR_ITS ---
EXAMINATION: XR CHEST CLINICAL INFORMATION: Weakness. COMPARISON: Chest 02/10/2022 TECHNIQUE: Frontal view of the chest was obtained. FINDINGS: The lungs are well-expanded with patchy atelectatic changes right middle lobe. Heart size and pulmonary vascularity is normal. No gross bony abnormality.. XR/XR chest 1V IMPRESSION: Patchy atelectatic changes right middle lobe.
--- NOTE | ~2023-07-14 | CT_ITS ---
EXAMINATION: CT head/brain wo IV con CLINICAL INFORMATION: Reason for Exam ?trauma, lethargy COMPARISON: None available. TECHNIQUE: Contiguous axial imaging was performed from the skull base to vertex without intravenous contrast. Sagittal and coronal reformatted images were obtained. This CT examination was performed using dose optimization techniques as appropriate, variously including the following: * Automated exposure control * Adjustment of mA and/or kV according to patient size (this includes techniques or standardized protocols for targeted exams where dose is matched to indication/reason for exam; i.e. extremities or head) Use of iterative reconstruction technique DLP: 1040 mGy-cm FINDINGS: There is no evidence of acute intracranial hemorrhage. No mass-effect or ventricular shift is noted. No acute, territorial loss of carmen-white differentiation. Generalized cerebral volume loss with associated ventricular and sulcal prominencePeriventricular and subcortical white matter hypodensity is nonspecific but likely represents chronic microvascular ischemic change. No depressed calvarial fracture. Scattered mucosal thickening in the partially visualized paranasal sinuses. Opacified right posterior ethmoid air cell. Aerated secretions in the left sphenoid sinus.. Complete opacification of the right mastoid air cells and middle ear cavity with associated sclerosis. The right ossicles are not visualized and likely eroded/absent. 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 CT/CT head/brain wo IV con IMPRESSION: Technically degraded examination. Within this constraint, no acute intracranial hemorrhage or territorial loss of carmen-white differentiation is visualized. Opacification of the right mastoid air cells and middle ear cavity with erosion or surgical absence of the ossicles. 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 Findings may be chronic and clinical correlation is recommended.
--- NOTE | 2023-07-14 18:40 | ECG_ITS ---
Test Reason : AMS Blood Pressure : / mmHG Vent. Rate : 083 BPM Atrial Rate : 083 BPM P-R Int : 156 ms QRS Dur : 096 ms QT Int : 372 ms P-R-T Axes : 085 -21 080 degrees QTc Int : 437 ms Normal sinus rhythm Left atrial enlargement Incomplete right bundle branch block Biventricular hypertrophy Cannot rule out Anteroseptal infarct , age undetermined Abnormal ECG No previous ECGs available Referred By: Mariana Saab Electronically Signed By:Marin Stringer
--- NOTE | 2023-07-14 18:42 | ED_ITS ---
HPI - General Adult General Chief complaint: Weakness Stated complaint: R/O uti, unusual sleeping and behavior Time Seen by Provider: 07/14/23 18:33 Source: EMS Limitations: altered mental status History of Present Illness HPI narrative: This is a 77-year-old female who is developmentally delayed who has a history of diabetes and hypertension who presents to the ER with concern for increasing lethargy and possible urinary tract infection. Per report from EMS the staff at her in custodial is concerned the patient has been more lethargic from normal for the last few days. She does have a history of recurrent urinary tract infections and typically has his presentation. The patient is unable to provide any history of present illness. Related Data Home Medications Medication Instructions Recorded Confirmed nutrition tx glu ea PO 03/24/23 03/24/23 intol,lac-free,soy-fiber 0.06 gram-1.1 kcal/mL liquid (Boost Glucose Control) Previous Rx's Medication Instructions Recorded mirtazapine 15 mg tablet 15 mg PO BEDTIME #90 tabs 07/11/22 wipes See Rx Instructions .Route 11/21/22 .COMPLEX for incontinence care #100 ea cholecalciferol (vitamin D3) 25 25 mcg PO .DAILY in AM #90 tabs 01/16/23 mcg (1,000 unit) tablet lisinopril 10 mg tablet 10 mg PO .DAILY in AM #90 tabs 02/26/23 sitagliptin phosphate 50 mg tablet 50 mg PO .COMPLEX #90 tabs 02/27/23 (Januvia) lidocaine 5 % topical ointment 1 appl topical .COMPLEX #100 grams 03/11/23 zinc oxide 13 % topical cream See Rx Instructions topical 03/11/23 .COMPLEX skin irritation #454 grams Adult pull up incontinence briefs #180 ea 03/13/23 multivitamin 1 tab PO DAILY #90 tabs 03/24/23 atorvastatin 10 mg tablet 10 mg PO QPM #90 tabs 04/29/23 meloxicam 7.5 mg tablet 7.5 mg PO DAILY PRN pain, moderate 06/22/23 #30 tabs chair alarm #1 ea 06/24/23 amoxicillin 500 mg-potassium 1 tab PO BID #14 tabs 07/14/23 clavulanate 125 mg tablet (Augmentin) Allergies Allergy/AdvReac Type Severity Reaction Status Date / Time acetaminophen [From Tylenol] Allergy Unknown Verified 07/14/23 18:44 nut. tx, glucose Allergy Headaches Verified 07/14/23 18:44 intolerance,lactose-free,soy [From Glucerna] nutritional therapy, glucose Allergy Headaches Verified 07/14/23 18:44 intolerance,soy [From Glucerna] Review of Systems 2 Review of Systems: Yes Unobtainable due to mental status PMFSH Past Medical History Attestation statement: The following information was validated with the patient. Source: old records reviewed and nursing notes reviewed Onset Date is defined in the Problem List Problems that require an onset date and time if occurred within 24 hrs of arrival to the ED Aortic Dissection and Rupture; Neurologic impairment; Cardiopulmonary Arrest; Endotracheal Intubation; Insertion or Replacement of Mechanical Circulatory Assist Device Medical History Osteoporosis Balance disorder Superficial bruising of lower leg Diarrhea Weight loss Eczema Type 2 diabetes mellitus Hyperlipidemia HTN (hypertension) Mental dysfunction Surgical History H/O colonoscopy Social History Social History Housing: Assisted Living Facility Alcohol intake: never Patient Tobacco Use Status: Never used Tobacco Smoked in Last 30 Days: No e-Cigarette/Vaping Use: Never Used Use of substances other than those prescribed or required for medical reasons: No Advance Directives: Yes Advance Directives Information Provided: No Advance Directives on File: No Current occupational status: disabled Cognitive needs: Yes Hearing needs: No Vision needs: No Physical Exam ED Vital Signs: Vital Signs - 24 hr 07/14/23 20:44 Temperature 97.4 F Pulse Rate 84 Respiratory Rate 24 H Blood Pressure 110/58 L Pulse Oximetry 98 Oxygen Delivery Method Room Air BMI result Body Mass Index 9.8 Const Other: Patient resting with eyes closed. Does rouse to verbal. Mumbling work HENMT Head: Yes normal to inspection and No Anthony's sign Head images: 2 1. ecchymosis which does not appear new Ears: hearing grossly normal bilaterally and TM's normal bilaterally Eyes General: appearance normal, both eyes and all related structures Pupils: Equal, round and reactive pupils present Neck Neck: Yes normal visual inspection, Yes full ROM, Yes no lymphadenopathy and Yes no meningeal signs Chest Chest palpation & inspection: normal inspection of the chest Resp Effort & Inspection: normal respiratory effort Auscultation: clear to auscultation bilaterally Cardio Rate: regular rate Rhythm: regular rhythm Peripheral pulses: Peripheral pulses 2+ throughout GI Inspection: Yes normal to inspection Palpation (GI): Soft to palpation and nontender Back/Spine/Pelvis Thoracic/Lumbar Spine: thoracic and lumbar spine normal to inspection Skin General skin exam: no rashes or lesions noted Neuro General: moves all extremities, no meningeal signs and normal sensation to monofilament Cranial nerves: Yes Equal, round and reactive pupils present Extrem General: Yes normal to inspection, Yes no pedal edema and Yes no calf tenderness Medications Administered Discontinued Medications Generic Name Dose Route Start Last Admin Trade Name Freq PRN Reason Stop Dose Admin Amoxicillin/Clavulanate Potassium 500 mg 07/14/23 22:01 07/14/23 22:15 Amoxicillin/Potassium Clav 500 Mg Tablet PO 07/14/23 22:02 500 mg ONCE ONE Administration Lorazepam 0.5 mg 07/14/23 19:34 07/14/23 19:56 Lorazepam 2 Mg/Ml Vial IVPUSH 07/14/23 19:35 0.5 mg STAT STA Administration Medical Decision Making Medical Decision Making [facility] Narrative: This is a 77-year-old female who is developmentally delayed who has a history of diabetes and hypertension who presents to the ER with concern for increasing lethargy and possible urinary tract infection. Per report from EMS the staff at her in custodial is concerned the patient has been more lethargic from normal for the last few days. She does have a history of recurrent urinary tract infections and typically has his presentation. The patient is unable to provide any history of present illness. Pt sleeping, rouses to verbal, mumbling speech. Unable to provide HPI, ROS, or much of a physical exam Bruising noted to left periorbital area but does not appear new. Will obtain labs, UA, EKG, screen for covid/flu/rsv, CXR, CT head Differential Diagnosis Differential Diagnoses: The differential diagnosis associated with the presentation includes Metabolic cause, UTI, pneumonia Admission/Observation Consideration of admission/observation: Escalation of care including admission/observation considered Chest x-ray shows an infiltrate. The patient is not hypoxic. She is not febrile, nontoxic appearing, tolerating p.o.. I believe that she can go home with oral antibiotics with strict return precautions. This was discussed with custodial staff who agrees with plan of care Lab Data MDM Lab Attestation statement: I reviewed the patient's lab results. 07/14/23 18:59 07/14/23 18:59 Labs: Lab Results 07/14/23 07/14/23 Range/Units 18:59 21:30 WBC 10.1 (4.8-10.8) X10*3/uL RBC 3.59 L (4.20-5.50) X10*6/uL Hgb 10.3 L (12.0-16.0) g/dl Hct 31.9 L (37.0-47.0) % MCV 88.9 (80.0-98.0) fL MCH 28.7 (27.0-33.0) pg MCHC 32.3 (31.0-35.0) g/dl RDW 14.5 (11.0-16.0) % Plt Count 326 (160-400) X10*3/uL MPV 8.1 L (9.4-12.3) fL Immature Gran % (Auto) 0.7 H (0.0-0.4) % Neut % (Auto) 76.2 H (45-73) % Lymph % (Auto) 14.3 L (20-40) % [place] % (Auto) 8.5 (2-11) % Eos % (Auto) 0.2 (0-4) % Baso % (Auto) 0.1 (0-2) % Lymph # (Auto) 1.4 (1.2-4.9) X10*3/uL [place] # (Auto) 0.9 (0.1-1.2) X10*3/uL Eos # (Auto) 0.0 (0.0-0.4) X10*3/uL Baso # (Auto) 0.0 (0.0-0.2) X10*3/uL Abs Immat Gran (auto) 0.07 H (0.00-0.03) X10*3/uL Absolute Neuts (auto) 7.7 (2.0-8.3) x10*3/uL Absolute Nucleated RBC 0.000 (0.0-0.012) X10*3/uL Nucleated RBC % (auto) 0.0 (0.0-0.2) /100WBC PT 11.7 (11.1-13.3) SEC INR 1.0 (0.9-1.1) Sodium 137 (135-145) mmol/L Potassium 3.8 (3.3-5.1) mmol/L Chloride 100 (96-108) mmol/L Carbon Dioxide 24 (22-29) mmol/L Anion Gap 17 (12-20) BUN 16 (9-16) mg/dL Creatinine 0.60 (0.5-1.4) mg/dL Estim Creat Clear Calc 32.2 Estimated GFR > 60 Random Glucose 204 H (60-115) mg/dL Calcium 8.9 D (8.4-10.2) mg/dL Magnesium 2.0 (1.6-2.6) mg/dL Total Bilirubin 0.3 (0.0-1.0) mg/dL Direct Bilirubin 0.1 (0.0-0.5) mg/dL AST 25 (5-31) U/L ALT 18 (0-31) U/L Alkaline Phosphatase 110 (39-117) U/L Troponin I High Sens 4.5 (<3.5-17.0) ng/L Total Protein 6.6 (6.5-8.0) g/dL Albumin 3.3 L (3.5-5.0) g/dL Urine Color Yellow Urine Appearance Clear Urine pH 5.5 (5.0-9.0) Ur Specific [place] <= 1.005 (1.005-1.025) Urine Protein Negative (Neg-Trace) mg/dL Urine Glucose (UA) Negative (Negative) mg/dL Urine Ketones Negative (Negative) mg/dL Urine Blood Negative (Negative) Urine Nitrite Negative (Negative) Ur Leukocyte Esterase Negative (Negative) Influenza Type A (PCR) NEGATIVE (Negative) Influenza Type B (PCR) NEGATIVE (Negative) RSV RNA Qual (PCR) NEGATIVE (Negative) SARS-CoV-2 RNA (RT-PCR) NEGATIVE (Negative) Independent Interpretation I performed an independent interpretation of an: EKG, Plain X-Ray and CT Scan Interpretation: I independently reviewed the chest x-ray/ct head and agree with the radiology report I independently reviewed the EKG which shows normal sinus rhythm with a rate of 83, normal [place], normal QT Radiology Impression Discussion of test interpretation with radiology: I have reviewed the radiologist's reading. Radiologist Impression: [address] [address] XRay Report Signed Patient: Katie Sue MR#: [id number] : 1945 Acct:[id number] Age/Sex: 77 / F ADM Date: 07/14/23 Loc: HO.ED Attending Dr: Ordering Physician: Mariana Cooper NP Date of Service: 07/14/23 Procedure(s): XR chest 1V Accession Number(s): [id number] cc: Sendy Atwood MD; Mariana Cooper NP~ EXAMINATION: XR CHEST CLINICAL INFORMATION: Weakness. COMPARISON: Chest 02/10/2022 TECHNIQUE: Frontal view of the chest was obtained. FINDINGS: The lungs are well-expanded with patchy atelectatic changes right middle lobe. Heart size and pulmonary vascularity is normal. No gross bony abnormality.. XR/XR chest 1V IMPRESSION: Patchy atelectatic changes right middle lobe. [address] [address] [address] Scan Report Signed Patient: Katie Sue MR#: [id number] : 1945 Acct:[id number] Age/Sex: 77 / F ADM Date: 07/14/23 Loc: .ED Attending Dr: Ordering Physician: Mariana Cooper NP Date of Service: 07/14/23 Procedure(s): CT head/brain wo IV con Accession Number(s): [id number] cc: Sendy Atwood MD; Mariana Cooper NP~ EXAMINATION: CT head/brain wo IV con CLINICAL INFORMATION: Reason for Exam ?trauma, lethargy COMPARISON: None available. TECHNIQUE: Contiguous axial imaging was performed from the skull base to vertex without intravenous contrast. Sagittal and coronal reformatted images were obtained. This CT examination was performed using dose optimization techniques as appropriate, variously including the following: * Automated exposure control * Adjustment of mA and/or kV according to patient size (this includes techniques or standardized protocols for targeted exams where dose is matched to indication/reason for exam; i.e. extremities or head) Use of iterative reconstruction technique DLP: 1040 mGy-cm FINDINGS: There is no evidence of acute intracranial hemorrhage. No mass-effect or ventricular shift is noted. No acute, territorial loss of carmen-white differentiation. Generalized cerebral volume loss with associated ventricular and sulcal prominencePeriventricular and subcortical white matter hypodensity is nonspecific but likely represents chronic microvascular ischemic change. No depressed calvarial fracture. Scattered mucosal thickening in the partially visualized paranasal sinuses. Opacified right posterior ethmoid air cell. Aerated secretions in the left sphenoid sinus.. Complete opacification of the right mastoid air cells and middle ear cavity with associated sclerosis. The right ossicles are not visualized and likely eroded/absent. 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 CT/CT head/brain wo IV con IMPRESSION: Technically degraded examination. Within this constraint, no acute intracranial hemorrhage or territorial loss of carmen-white differentiation is visualized. Opacification of the right mastoid air cells and middle ear cavity with erosion or surgical absence of the ossicles. 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 Findings may be chronic and clinical correlation is recommended. Independent Historian Clinical information obtained from an independent historian. History obtained from or confirmed by: EMS Prescription Management I considered prescription management with: Antibiotic Discharge Plan Discharge Clinical Impression: Pneumonia Patient Disposition: Home, Self-Care Instructions: Community Acquired Pneumonia (ED) Additional Instructions: Resume her antibiotic when it is received Follow-up with the primary care doctor in 3 days if no improvement in symptoms. Return for worsening symptoms Prescriptions: New amoxicillin-pot clavulanate [Augmentin] 500-125 mg tablet 1 tab PO BID Qty: 14 0RF No Action mirtazapine 15 mg tablet 15 mg PO BEDTIME Qty: 90 3RF wipes See Rx Instructions .ROUTE .COMPLEX Qty: 100 5RF Rx Instructions: Use for skin care after incontinence cholecalciferol (vitamin D3) 25 mcg (1,000 unit) tablet 25 mcg PO .DAILY in AM Qty: 90 3RF lisinopril 10 mg tablet 10 mg PO .DAILY in AM Qty: 90 3RF Januvia 50 mg tablet 50 mg PO .COMPLEX Qty: 90 3RF Rx Instructions: 50 mg orally daily in am; lidocaine 5 % ointment 1 appl topical .COMPLEX Qty: 100 4RF Rx Instructions: 1 appl topically daily in am; apply thin layer to knees and ankles Desitin Rapid Relief 13 % cream See Rx Instructions topical .COMPLEX Qty: 454 4RF Rx Instructions: apply thin layer as needed 3 times per day as needed to perineal area. Do not exceed 3 applications in 24 hours, apply at least 6 hours apart. Wash skin to remove 2-4 times per day. Contact PCP if no improvement in 5 days topically; (DME) Adult pull up incontinence briefs Small See Rx Instructions .Route .MEDSUPPLY Qty: 180 11RF Rx Instructions: As directed atorvastatin 10 mg tablet 10 mg PO QPM Qty: 90 3RF (DME) chair alarm See Rx Instructions .Route .MEDSUPPLY Qty: 1 0RF Rx Instructions: As directed Boost Glucose Control 0.06-1.1 gram-kcal/mL liquid PO multivitamin Tablet 1 tab PO DAILY Qty: 90 3RF meloxicam 7.5 mg tablet 7.5 mg PO DAILY PRN (Reason: pain, moderate) Qty: 30 0RF
[2023-07-14 18:44] VITALS: PULSE 92
[2023-07-14 19:06] LABS: MANUAL DIFF FLAG NO
[2023-07-14 19:07] LABS: Basophils Percent Auto 0.1 % (0-2); Eosinophils Percent Auto 0.2 % (0-4); Hematocrit 31.9 % (37.0-47.0); Hemoglobin 10.3 g/dl (12.0-16.0); Imm Gran Abs Auto 0.07 X10*3/uL (0.00-0.03); Imm Gran Pct Auto 0.7 % (0.0-0.4); Lymphocytes Absolute Auto 1.4 X10*3/uL (1.2-4.9); Lymphocytes Percent Auto 14.3 % (20-40); Mean Corpuscular HGB Conc 32.3 g/dl (31.0-35.0); Mean Corpuscular Hemoglobin 28.7 pg (27.0-33.0); Mean Corpuscular Volume 88.9 fL (80.0-98.0); Mean Platelet Volume 8.1 fL (9.4-12.3); Monocytes Absolute Auto 0.9 X10*3/uL (0.1-1.2); Monocytes Percent Auto 8.5 % (2-11); Neutrophils Absolute Auto 7.7 x10*3/uL (2.0-8.3); Neutrophils Percent Auto 76.2 % (45-73); Platelet Count 326 X10*3/uL (160-400); Red Blood Count 3.59 X10*6/uL (4.20-5.50); Red Cell Distribution Width 14.5 % (11.0-16.0); White Blood Count 10.1 X10*3/uL (4.8-10.8)
[2023-07-14 19:27] LABS: Prothrombin Time 11.7 SEC (11.1-13.3)
[2023-07-14 19:29] LABS: Troponin-I High Sensitivity 4.5 ng/L (<3.5-17.0)
[2023-07-14 19:33] LABS: Alanine Aminotransferase 18 U/L (0-31); Albumin Level 3.3 g/dL (3.5-5.0); Alkaline Phosphatase 110 U/L (39-117); Anion Gap 17 (12-20); Aspartate Amino Transferase 25 U/L (5-31); Bilirubin Direct 0.1 mg/dL (0.0-0.5); Bilirubin Total 0.3 mg/dL (0.0-1.0); Blood Urea Nitrogen 16 mg/dL (9-16); Calcium 8.9 mg/dL (8.4-10.2); Carbon Dioxide 24 mmol/L (22-29); Chloride 100 mmol/L (96-108); Creatinine Clr Calc Pharmacy 32.2; Estimated Glomerular Filt Rate > 60; Glucose Random 204 mg/dL (60-115); Potassium 3.8 mmol/L (3.3-5.1); Sodium 137 mmol/L (135-145); Total Protein 6.6 g/dL (6.5-8.0)
[2023-07-14 19:47] LABS: Influenza A PCR NEGATIVE (Negative); Influenza B PCR NEGATIVE (Negative); Resp Syncy Virus RNA Qual PCR NEGATIVE (Negative); SARS COV2 PCR INHOUSE NEGATIVE (Negative)
--- NOTE | 2023-07-14 19:50 | MHC.EDTECH ---
Attempted EKG, Pt unable to remain still for the procedure.
[2023-07-14] MEDS: LORazepam 2 MG/ML VIAL 0.5 MG IVPUSH (19:56)
--- NOTE | 2023-07-14 20:33 | PC.NURSE ---
Took over care at 19:00pm from RODRI Real, pt medicated per sep.
[2023-07-14 20:44] VITALS: BP 110/58; PULSE 84; RESP 24; TEMP 36.3; O2SAT 98
--- NOTE | 2023-07-14 21:34 | PC.NURSE ---
pt straight cath, ua collected and sent.
[2023-07-14 21:47] LABS: Appearance Urine Clear; Color Urine Yellow; Glucose Urine UA Negative (Negative); Leukocyte Esterase Urine Negative (Negative); Nitrite Urine Negative (Negative); PH 5.5 (5.0-9.0); Specific Gravity - Urine <= 1.005 (1.005-1.025); Urine Blood Negative (Negative); Urine Ketones Negative (Negative); Urine Protein Negative (Neg-Trace)
[2023-07-14] MEDS: Amoxicillin/Potassium Clav 500 MG TABLET PO (22:15)
== END 2023-07-14 22:40 | disposition home or self-care (01) ==
PROVIDERS: Nurse Practitioner Family; Emergency Provider Emergency Medicine Emergency Medical Services; PCP Internal Medicine
DX: J18.9 Pneumonia, unspecified organism (principal); Z20.822 Contact with and (suspected) exposure to COVID-19; Z20.828 Contact with and (suspected) exposure to other viral communicable diseases; E11.9 Type 2 diabetes mellitus without complications; I10 Essential (primary) hypertension; E78.5 Hyperlipidemia, unspecified; E55.9 Vitamin D deficiency, unspecified; R23.3 Spontaneous ecchymoses; Z87.440 Personal history of urinary (tract) infections; Z79.899 Other long term (current) drug therapy; Z79.02 Long term (current) use of antithrombotics/antiplatelets; Z79.84 Long term (current) use of oral hypoglycemic drugs
CPT/HCPCS: 0241U; 70450; 71045; 80048; 80076; 81003; 83735; 84484; 85025; 85610; 93005; 99284; 99285; J2060

== ENCOUNTER → 2023-07-14 18:40 | Outpatient (BNV) | payer OTHER, SELFPAY | PROVIDERS: Emergency Provider Emergency Medicine Emergency Medical Services; PCP Internal Medicine; Visit Provider Internal Medicine Cardiovascular Disease | DX: R94.31 Abnormal electrocardiogram [ECG] [EKG] (principal) | CPT/HCPCS: 93010 ==

== ENCOUNTER 2023-07-23 09:28 | Outpatient (REF) | payer OTHER, SELFPAY ==
[2023-07-23 12:04] LABS: Estimated Average Glucose 134 mg/dL; Hemoglobin A1c % 6.3 % (<6.0)
[2023-07-23 12:28] LABS: Alanine Aminotransferase 15 U/L (0-31); Albumin Level 3.2 g/dL (3.5-5.0); Alkaline Phosphatase 100 U/L (39-117); Anion Gap 12 (12-20); Aspartate Amino Transferase 20 U/L (5-31); Bilirubin Total 0.5 mg/dL (0.0-1.0); Blood Urea Nitrogen 15 mg/dL (9-16); Calcium 8.9 mg/dL (8.4-10.2); Carbon Dioxide 26 mmol/L (22-29); Chloride 104 mmol/L (96-108); Estimated Glomerular Filt Rate > 60; Glucose Fasting 124 mg/dL (60-99); Potassium 4.2 mmol/L (3.3-5.1); Sodium 138 mmol/L (135-145); Total Protein 6.4 g/dL (6.5-8.0)
[2023-07-23 12:45] LABS: TSH reflex Free T4 0.45 uIU/mL (0.32-4.0); Vitamin D 25-OH Total 55.4 ng/mL (>30)
== END 2023-07-23 09:29 | disposition home or self-care (01) ==
LOC: HO.HMGCLDS 09:28
PROVIDERS: PCP Internal Medicine; Visit Provider Internal Medicine
DX: E11.9 Type 2 diabetes mellitus without complications (principal); I10 Essential (primary) hypertension; E78.5 Hyperlipidemia, unspecified
CPT/HCPCS: 36415; 80053; 82306; 83036; 84443

== ENCOUNTER 2023-07-30 11:20 | Outpatient (AMB) | payer OTHER, SELFPAY ==
--- NOTE | 2023-07-30 11:24 | MHC.PC.OV ---
Vital Signs 07/30/23 11:28 Height 5 ft 3 in BMI Reason not done Patient refused/unable BP 120/60 Blood Pressure Location Lt brachial Position Sitting Intake Visit Reasons: ER Follow up Intake Note: Pt is here today for ER follow up visit. Allergies acetaminophen [From Tylenol] Allergy (Verified 07/30/23 11:36) Unknown nut. tx, glucose intolerance,lactose-free,soy [From Glucerna] Allergy (Verified 07/30/23 11:36) Headaches nutritional therapy, glucose intolerance,soy [From Glucerna] Allergy (Verified 07/30/23 11:36) Headaches Medication List - Last Reconciled 07/30/23 by Sendy Atwood MD [Adult pull up incontinence briefs As directed] atorvastatin 10 mg PO QPM [chair alarm As directed] cholecalciferol (vitamin D3) 25 mcg PO .DAILY in AM lidocaine 5% 1 appl topically daily in am; apply thin layer to knees and ankles lisinopril 10 mg PO .DAILY in AM meloxicam 7.5 mg PO DAILY mirtazapine 15 mg PO BEDTIME multivitamin 1 tab PO DAILY nut.tx.gluc intol,lf,soy-fiber 0.06-1.1 gram-kcal/mL (Boost Glucose Control) ea PO sitagliptin phosphate (Januvia) 50 mg orally daily in am; [wipes Use for skin care after incontinence] zinc oxide 13% apply thin layer as needed 3 times per day as needed to perineal area. Do not exceed 3 applications in 24 hours, apply at least 6 hours apart. Wash skin to remove 2-4 times per day. Contact PCP if no improvement in 5 days topically; Tobacco use date assessed: 07/30/23 Fall risk assessment: 1 Fall in past year Last assessed Fall Risk: 07/30/23 Dental Screening Dental Screen Date: 07/30/23 Did you have a dental visit in the last 12 months?: No Did you have a dental problem in the last 6 months where you did not have access to dental care?: No Was dental information given to patient?: Patient declined HPI ER Follow up HPI Details Patient presents for the follow-up of ER visit for upper respiratory infection. She completed a treatment for pneumonia and her cough resolved. Hypertension type 2 diabetes and hyperlipidemia are controlled on current medications. FORMERLY [facility], [facility] Medical History Osteoporosis Balance disorder Superficial bruising of lower leg Diarrhea Weight loss Eczema Type 2 diabetes mellitus Hyperlipidemia HTN (hypertension) Mental dysfunction Surgical History H/O colonoscopy Social History Housing: Assisted Living Facility Alcohol intake: never Patient Tobacco Use Status: Never used Tobacco e-Cigarette/Vaping Use: Never Used Current occupational status: disabled Cognitive needs: Yes Hearing needs: No Vision needs: No Questionnaire Thrive Questionnaire Date Thrive assessed: 11/19/22 AUDIT C Alcohol Use Questionnaire (AUDIT-C) 1. How often do you have a drink containing alcohol?: Never 3. How often do you have six or more drinks on one occasion?: Never Total Score: 0 EVONNE-7 AMB Questionnaire EVONNE-7 Date EVONNE - 7 assessed: 11/19/22 Source: Developed by Drs. Amauri North, Jocelyne Singh, Maurice Romero and colleagues, with an educational oralia from [employer]. Review of Systems Const All systems reviewed & are unremarkable except as noted in HPI and below Reports no additional complaints Eyes Reports no additional complaints ENT Reports no additional complaints Card Reports no additional complaints Resp Reports no additional complaints GI Reports no additional complaints Reports no additional complaints Physical exam (Primary Care) Vital Signs: Last Vital Signs BP 88/54 L 07/30/23 11:28 Tobacco/Smoking Status: Tobacco use Status Tobacco use date assessed 07/30/23 07/30/23 11:37 Patient Tobacco Use Status Never used Tobacco 07/30/23 11:37 e-Cigarette/Vaping Use Never Used 07/30/23 11:25 Thrive Assessment: Date of Thrive Assessment Date Thrive assessed 11/19/22 07/30/23 11:25 Const General: no acute distress HENMT Head: Yes normal to inspection Mouth: Normal oral and palatal mucosa present Eyes General: appearance normal, both eyes and all related structures Neck Neck: Yes no lymphadenopathy and Yes supple Resp Effort & Inspection: normal respiratory effort Auscultation: clear to auscultation bilaterally Cardio Rhythm: regular rhythm Heart sounds: S1 normal heart sound present and S2 normal heart sound present GI Inspection: Yes normal to inspection Palpation (GI): Soft to palpation Percussion: Yes normal to percussion Auscultation: normal bowel sounds Assessment and Plan Assessment & Plan (1) Anemia: Code(s): D64.9 - Anemia, unspecified Plan: Check iron study B12 and folic acid (2) Hyperlipidemia: Code(s): E78.5 - Hyperlipidemia, unspecified Plan: Continue atorvastatin (3) HTN (hypertension): Comment: Continue current medication Code(s): I10 - Essential (primary) hypertension Plan: Continue lisinopril (4) Type 2 diabetes mellitus: Comment: Pt appears to maintain weight with bmi 13.0 13.7 Pt having one nutritional supplement per day Code(s): E11.9 - Type 2 diabetes mellitus without complications Plan: A1c is 6.3, Continue ADA, current medications. Follow-up in my for PE Orders: Orders IRON PROFILE Today D64.9 - Anemia, unspecified Vitamin B12 and Folate Today D64.9 - Anemia, unspecified Lipid Panel 4 Months D64.9 - Anemia, unspecified, E11.9 - Type 2 diabetes mellitus without complications, E78.5 - Hyperlipidemia, unspecified, I10 - Essential (primary) hypertension IRON PROFILE 4 Months D64.9 - Anemia, unspecified, E11.9 - Type 2 diabetes mellitus without complications, E78.5 - Hyperlipidemia, unspecified, I10 - Essential (primary) hypertension Vitamin B12 and Folate 4 Months D64.9 - Anemia, unspecified, E11.9 - Type 2 diabetes mellitus without complications, E78.5 - Hyperlipidemia, unspecified, I10 - Essential (primary) hypertension Comprehensive [place]. Panel Fast 4 Months D64.9 - Anemia, unspecified, E11.9 - Type 2 diabetes mellitus without complications, E78.5 - Hyperlipidemia, unspecified, I10 - Essential (primary) hypertension Hemoglobin A1c 4 Months D64.9 - Anemia, unspecified, E11.9 - Type 2 diabetes mellitus without complications, E78.5 - Hyperlipidemia, unspecified, I10 - Essential (primary) hypertension Complete Blood Count Auto Diff 4 Months D64.9 - Anemia, unspecified, E11.9 - Type 2 diabetes mellitus without complications, E78.5 - Hyperlipidemia, unspecified, I10 - Essential (primary) hypertension TSH reflex Free T4 4 Months D64.9 - Anemia, unspecified, E11.9 - Type 2 diabetes mellitus without complications, E78.5 - Hyperlipidemia, unspecified, I10 - Essential (primary) hypertension Medications: Changed From nut.tx.gluc intol,lf,soy-fiber 0.06-1.1 gram-kcal/mL (Boost Glucose Control) PO To nut.tx.gluc intol,lf,soy-fiber 0.06-1.1 gram-kcal/mL (Boost Glucose Control) PO BID Coding Level of Care Code Est Pt Level 4 (52383) Diagnoses Anemia D64.9 Hyperlipidemia E78.5 HTN (hypertension) I10 Type 2 diabetes mellitus E11.9
[2023-07-30 11:28] VITALS: BP 120/60
== END 2023-07-30 12:07 | disposition home or self-care (01) ==
PROVIDERS: PCP Internal Medicine; Visit Provider Internal Medicine
DX: D64.9 Anemia, unspecified (principal); E78.5 Hyperlipidemia, unspecified; I10 Essential (primary) hypertension; E11.9 Type 2 diabetes mellitus without complications
CPT/HCPCS: 99214

== ENCOUNTER 2023-07-30 11:55 | Outpatient (REF) | payer OTHER, SELFPAY ==
[2023-07-30 14:05] LABS: Iron 28 mcg/dL (30-160); Percent Iron Saturation 19 % (15-50); Total Iron Binding Capacity 149 mcg/dL (228-428); Unsaturated Iron Binding 121 ug/dL
[2023-07-30 14:31] LABS: Folate 10.2 ng/mL (> or = 4.0); Vitamin B12 1094 pg/mL (200-900)
== END 2023-07-30 11:56 | disposition home or self-care (01) ==
LOC: HO.HMGCLDS 11:55
PROVIDERS: PCP Internal Medicine; Visit Provider Internal Medicine
DX: D64.9 Anemia, unspecified (principal)
CPT/HCPCS: 36415; 82607; 82746; 83540

== ENCOUNTER 2023-07-31 13:25 | Outpatient (REF) | payer OTHER, SELFPAY ==
--- NOTE | ~2023-07-31 | MM_ITS ---
EXAMINATION: BONE DENSITOMETRY CLINICAL INDICATION: Age-related osteoporosis without current pathological fracture. COMPARISON: This is the patient's baseline examination. TECHNIQUE: Using a [employer] DXA System (software version: 13.1) manufactured by [employer], dual-energy x-ray absorptiometry was performed of the lumbar spine and left hip. The images are of good technical quality. Summary results are attached. FINDINGS: LEFT FEMUR, NECK: BMD 0.309 g/cm2, Z-score -2.4, T-score -5.2, osteoporosis. LEFT FEMUR, TOTAL: BMD 0.233 g/cm2, Z-score -3.4, T-score -6.1, osteoporosis. AP SPINE L1-L3 (excluding L4): The data of L1-L4 has been changed to exclude the L4 vertebral body, because degenerative sclerosis at this level may cause overestimation of lumbar spine density. BMD 0.409 g/cm2, Z-score -3.2, T-score -6.3, osteoporosis. IDENTIFIED RISK FACTORS: Menopause, low body weight, osteoporosis. HISTORY OF FRACTURE: None listed. MEDICATIONS: Calcium supplements or multivitamin, vitamin D. MM/XR DEXA axial skeleton IMPRESSION: 1. DIAGNOSIS: Osteoporosis based on the lowest T-score value of -6.3 in the lumbar spine applying World Health Organization criteria. 2. 10-YEAR FRACTURE RISK PREDICTION, FRAX: According to the guidelines, FRAX calculation should only be performed on patients in the osteopenia bone density category. Therefore, FRAX was not performed on this patient. 3. Treatment Recommendations: NOF guidelines recommend consideration for treatment in postmenopausal women and men age 50 and older presenting with the following: -A hip or vertebral (clinical or morphometric) fracture. -T-score less than or equal to -2.5 at the femoral neck or spine after appropriate evaluation to exclude secondary causes. -Low bone mass at the hip or spine and a 10-year fracture probability by FRAX of greater than or equal to 3% for hip fracture or greater than or equal to 20% for major osteoporotic fracture based on the [place] adapted WHO algorithm. 4. Other Recommendations: All treatment decisions require clinical judgment and consideration of individual patient factors, including patient preferences, comorbidities, previous drug use, risk factors not captured in the FRAX model (e.g. frailty, falls, vitamin D deficiency, increased bone turnover, interval significant decline in bone density) and possible under or overestimation of fracture risk by FRAX. Additional medical evaluation for secondary cause of low bone mineral density may be appropriate. FUTURE SCAN RECOMMENDATION: People with diagnosed cases of osteoporosis or at high risk for fracture should have regular bone mineral density tests. For patients eligible for Medicare, routine testing is allowed once every 2 years. The testing frequency can be increased to one year for patients who have rapidly progressing disease, those who are receiving or discontinuing medical therapy to restore bone mass, or have additional risk factors.
== END 2023-07-31 13:26 | disposition home or self-care (01) ==
LOC: HO.MAMMO 13:25
PROVIDERS: PCP Internal Medicine; Visit Provider Internal Medicine
DX: Z13.820 Encounter for screening for osteoporosis (principal); M81.0 Age-related osteoporosis without current pathological fracture; Z78.0 Asymptomatic menopausal state
CPT/HCPCS: 77080

== ENCOUNTER 2023-09-29 10:37 | Outpatient (REF) | payer OTHER, SELFPAY ==
[2023-09-29 13:28] LABS: MANUAL DIFF FLAG NO
[2023-09-29 13:48] LABS: Basophils Percent Auto 0.4 % (0-2); Eosinophils Absolute Auto 0.1 X10*3/uL (0.0-0.4); Eosinophils Percent Auto 1.4 % (0-4); Hematocrit 34.1 % (37.0-47.0); Hemoglobin 10.8 g/dl (12.0-16.0); Imm Gran Abs Auto 0.05 X10*3/uL (0.00-0.03); Imm Gran Pct Auto 0.6 % (0.0-0.4); Lymphocytes Absolute Auto 0.9 X10*3/uL (1.2-4.9); Lymphocytes Percent Auto 10.4 % (20-40); Mean Corpuscular HGB Conc 31.7 g/dl (31.0-35.0); Mean Corpuscular Hemoglobin 27.9 pg (27.0-33.0); Mean Corpuscular Volume 88.1 fL (80.0-98.0); Mean Platelet Volume 8.6 fL (9.4-12.3); Monocytes Percent Auto 12.1 % (2-11); Neutrophils Absolute Auto 6.4 x10*3/uL (2.0-8.3); Neutrophils Percent Auto 75.1 % (45-73); Platelet Count 408 X10*3/uL (160-400); Red Blood Count 3.87 X10*6/uL (4.20-5.50); Red Cell Distribution Width 14.1 % (11.0-16.0); White Blood Count 8.5 X10*3/uL (4.8-10.8)
[2023-09-29 14:09] LABS: Blood Urea Nitrogen 20 mg/dL (9-16); Estimated Glomerular Filt Rate > 60; Iron 20 mcg/dL (30-160); Percent Iron Saturation 11 % (15-50); Total Iron Binding Capacity 186 mcg/dL (228-428); Unsaturated Iron Binding 166 ug/dL
== END 2023-09-29 10:38 | disposition home or self-care (01) ==
LOC: HO.HMGCLDS 10:37
PROVIDERS: PCP Internal Medicine; Visit Provider Internal Medicine
DX: M81.0 Age-related osteoporosis without current pathological fracture (principal); D64.9 Anemia, unspecified
CPT/HCPCS: 36415; 82565; 83540; 84520; 85025

== ENCOUNTER 2023-10-05 10:46 | Outpatient (REF) | payer OTHER, SELFPAY ==
[2023-10-05 10:48] VITALS: BP 131/60; PULSE 93; RESP 20; TEMP 36.6; O2SAT 95
[2023-10-05] MEDS: Zoledronic Acid/Mannitol-Water 5 MG/100 ML PGGYBK.BTL 400 MG IV (11:05)
== END 2023-10-05 10:47 | disposition home or self-care (01) ==
LOC: HO.MDS 10:46
PROVIDERS: Visit Provider Internal Medicine
DX: M81.0 Age-related osteoporosis without current pathological fracture (principal); J34.89 Other specified disorders of nose and nasal sinuses
CPT/HCPCS: 96374; J3489

== ENCOUNTER 2023-11-27 09:23 | Outpatient (REF) | payer OTHER, SELFPAY ==
[2023-11-27 10:32] LABS: MANUAL DIFF FLAG NO
[2023-11-27 10:36] LABS: Basophils Absolute Auto 0.1 X10*3/uL (0.0-0.2); Basophils Percent Auto 0.6 % (0-2); Eosinophils Percent Auto 0.4 % (0-4); Hematocrit 34.8 % (37.0-47.0); Hemoglobin 11.3 g/dl (12.0-16.0); Imm Gran Abs Auto 0.03 X10*3/uL (0.00-0.03); Imm Gran Pct Auto 0.4 % (0.0-0.4); Lymphocytes Percent Auto 11.6 % (20-40); Mean Corpuscular HGB Conc 32.5 g/dl (31.0-35.0); Mean Corpuscular Hemoglobin 27.8 pg (27.0-33.0); Mean Corpuscular Volume 85.7 fL (80.0-98.0); Mean Platelet Volume 8.2 fL (9.4-12.3); Monocytes Absolute Auto 1.1 X10*3/uL (0.1-1.2); Monocytes Percent Auto 12.6 % (2-11); NRBC Pct Auto 0.2 /100WBC (0.0-0.2); Neutrophils Absolute Auto 6.3 x10*3/uL (2.0-8.3); Neutrophils Percent Auto 74.4 % (45-73); Platelet Count 493 X10*3/uL (160-400); Red Blood Count 4.06 X10*6/uL (4.20-5.50); Red Cell Distribution Width 15.1 % (11.0-16.0); White Blood Count 8.4 X10*3/uL (4.8-10.8)
[2023-11-27 11:03] LABS: Estimated Average Glucose 203 mg/dL; Hemoglobin A1c % 8.7 % (<6.0)
[2023-11-27 11:57] LABS: Alanine Aminotransferase 18 U/L (0-31); Albumin Level 3.6 g/dL (3.5-5.0); Alkaline Phosphatase 111 U/L (39-117); Anion Gap 16 (12-20); Aspartate Amino Transferase 21 U/L (5-31); Bilirubin Total 0.5 mg/dL (0.0-1.0); Blood Urea Nitrogen 18 mg/dL (9-16); Calcium 9.3 mg/dL (8.4-10.2); Carbon Dioxide 25 mmol/L (22-29); Chloride 100 mmol/L (96-108); Cholesterol 101 mg/dL (<200); Estimated Glomerular Filt Rate > 60; Glucose Fasting 167 mg/dL (60-99); HDL Cholesterol 46 mg/dL (>40); Iron 17 mcg/dL (30-160); LDL Cholesterol Calculated 38 mg/dL (<100); Percent Iron Saturation 9 % (15-50); Potassium 3.9 mmol/L (3.3-5.1); Sodium 137 mmol/L (135-145); Total Iron Binding Capacity 182 mcg/dL (228-428); Total Protein 7.3 g/dL (6.5-8.0); Triglycerides 88 mg/dL (<150); Unsaturated Iron Binding 165 ug/dL
[2023-11-27 12:01] LABS: TSH reflex Free T4 0.63 uIU/mL (0.32-4.0)
[2023-11-27 12:12] LABS: Folate 15.1 ng/mL (> or = 4.0); Vitamin B12 1414 pg/mL (200-900)
== END 2023-11-27 09:24 | disposition home or self-care (01) ==
LOC: HO.HMGCLDS 09:23
PROVIDERS: PCP Internal Medicine; Visit Provider Internal Medicine
DX: D64.9 Anemia, unspecified (principal); E78.5 Hyperlipidemia, unspecified; I10 Essential (primary) hypertension; E11.9 Type 2 diabetes mellitus without complications
CPT/HCPCS: 36415; 80053; 80061; 82607; 82746; 83036; 83540; 84443; 85025

== ENCOUNTER 2023-12-01 13:00 | Outpatient (AMB) | payer OTHER, SELFPAY ==
--- NOTE | 2023-12-01 13:01 | A.OFFPC_ITS ---
Vital Signs 12/01/23 13:02 Height 5 ft 3 in Weight 53 lb 5 oz BMI 9.4 BP 100/60 Blood Pressure Location Lt brachial Position Sitting Intake Visit Reasons: Annual PE Intake Note: Pt is here today for PE. Allergies acetaminophen [From Tylenol] Allergy (Verified 12/01/23 13:04) Unknown nut. tx, glucose intolerance,lactose-free,soy [From Glucerna] Allergy (Verified 12/01/23 13:04) Headaches nutritional therapy, glucose intolerance,soy [From Glucerna] Allergy (Verified 12/01/23 13:04) Headaches Medication List - Last Reconciled 12/01/23 by Sendy Atwood MD [Adult pull up incontinence briefs As directed] atorvastatin 10 mg PO QPM [chair alarm As directed] cholecalciferol (vitamin D3) 25 mcg PO .DAILY in AM dextromethorphan-guaifenesin 10-200 mg/5 mL (Diabetic Tussin DM) 10 mL PO Q4H PRN ferrous sulfate 325 mg PO QAM lidocaine 5% 1 appl topically daily in am; apply thin layer to knees and ankles lisinopril 10 mg PO .DAILY in AM meloxicam 7.5 mg PO DAILY mirtazapine 15 mg PO BEDTIME multivitamin 1 tab PO DAILY nut.tx.gluc intol,lf,soy-fiber 0.07-0.8 gram-kcal/mL (Boost Glucose Control) 1 ea PO BID@0800,1200 sitagliptin phosphate (Januvia) 50 mg orally daily in am; [wipes Use for skin care after incontinence] zinc oxide 13% apply thin layer as needed 3 times per day as needed to perineal area. Do not exceed 3 applications in 24 hours, apply at least 6 hours apart. Wash skin to remove 2-4 times per day. Contact PCP if no improvement in 5 days topically; zoledronic tmbm-aoqupgnf-epwoh 5 mg/100 mL (Reclast) 1 ea IV ONCE Tobacco use date assessed: 12/01/23 Dental Screening Dental Screen Date: 07/30/23 HPI Annual PE HPI Details Pt is for PE PFSH Medical History (Updated 12/01/23 @ 14:02 by Sendy Atwood MD) Osteoporosis Balance disorder Superficial bruising of lower leg Diarrhea Weight loss Eczema Type 2 diabetes mellitus Hyperlipidemia HTN (hypertension) Mental dysfunction Surgical History H/O colonoscopy Social History Housing: Assisted Living Facility Alcohol intake: never Patient Tobacco Use Status: Never used Tobacco e-Cigarette/Vaping Use: Never Used service: No Current occupational status: disabled Cognitive needs: Yes Hearing needs: No Vision needs: No Questionnaire PHQ-9 Over the last 2 weeks, how often have you been bothered by any of the following problems? 13221 - PHQ-9 Billing: Patient declined-do not bill Source: Developed by Drs. Amauri North, Jocelyne Singh, Maurice Romero and colleagues, with an educational oralia from [employer]. Thrive Questionnaire Date Thrive assessed: 12/01/23 I am a: Parent/Caregiver What is your living situation today?: I have a steady place to live Within the past 12 months, did the food you bought not last and you didn't have the money to get more?: Never true Within the past 12 months, did you worry whether your food would run out before you got money to buy more?: Never true Do you have trouble paying for medicines?: No Do you have trouble getting transportation to medical appointments?: No Do you have trouble paying your heating and electricity bill?: No Do you have trouble taking care of your child, family member or friend?: No Do you have trouble with day-to-day activities such as bathing, preparing meals, shopping, managing finances, etc.?: No Are you currently unemployed and looking for a job?: No Are you interested in more education?: No Please select the resources that you would like help with: None THRIVE Score: 0 EVONNE-7 AMB Questionnaire EVONNE-7 Date EVONNE - 7 assessed: 12/01/23 Source: Developed by Drs. Amauri North, Jocelyne Singh, Maurice Romero and colleagues, with an educational oralia from [employer]. EVONNE-7 Assessment Billing EVONNE-7 Assessment Tool: pt declined-do not bill Review of Systems Const All systems reviewed & are unremarkable except as noted in HPI and below Reports no additional complaints Eyes Reports no additional complaints ENT Reports no additional complaints Card Reports no additional complaints Resp Reports no additional complaints GI Reports no additional complaints Reports no additional complaints Physical exam (Primary Care) Vital Signs: Last Vital Signs BP 100/60 12/01/23 13:02 BMI result Body Mass Index 9.4 Tobacco/Smoking Status: Tobacco use Status Tobacco use date assessed 12/01/23 12/01/23 13:07 Patient Tobacco Use Status Never used Tobacco 12/01/23 13:07 e-Cigarette/Vaping Use Never Used 12/01/23 13:07 Thrive Assessment: Date of Thrive Assessment Date Thrive assessed 12/01/23 12/01/23 13:09 Const General: no acute distress HENMT Head: Yes normal to inspection Eyes General: appearance normal, both eyes and all related structures Neck Neck: Yes supple Resp Effort & Inspection: normal respiratory effort Auscultation: clear to auscultation bilaterally Cardio Rhythm: regular rhythm Heart sounds: S1 normal heart sound present and S2 normal heart sound present GI Inspection: Yes normal to inspection Palpation (GI): Soft to palpation Percussion: Yes normal to percussion Auscultation: normal bowel sounds Neuro Other: Nonverbal, contracture of upper and lower extremities Assessment and Plan Assessment & Plan (1) HTN (hypertension): Comment: Continue current medication Code(s): I10 - Essential (primary) hypertension Plan: Continue lisinopril (2) Hyperlipidemia: Code(s): E78.5 - Hyperlipidemia, unspecified Plan: Low-cholesterol diet (3) Type 2 diabetes mellitus: Comment: Pt appears to maintain weight with bmi 13.0 13.7 Pt having one nutritional supplement per day Code(s): E11.9 - Type 2 diabetes mellitus without complications Plan: A1c is up to 8.7 increase Januvia to 100 mg daily follow-up in 3 months with a fasting labs before (4) Anemia: Comment: Iron deficiency Code(s): D64.9 - Anemia, unspecified Plan: Not significantly improving despite taking iron supplement, check FIT test (5) Osteoporosis: Comment: DEXA 08/05 T score -6.3 AP spine, Reclast infusion 10/03, vit D supplement Code(s): M81.0 - Age-related osteoporosis without current pathological fracture Plan: Continue calcium and vitamin-D supplement Orders: Orders Complete Blood Count Auto Diff 3 Months D64.9 - Anemia, unspecified, E11.9 - Type 2 diabetes mellitus without complications, E78.5 - Hyperlipidemia, unsp ecified, I10 - Essential (primary) hypertension IRON PROFILE 3 Months D64.9 - Anemia, unspecified, E11.9 - Type 2 diabetes mellitus without complications, E78.5 - Hyperlipidemia, unspecified, I10 - Essential (primary) hypertension Reticulocyte Count 3 Months D64.9 - Anemia, unspecified, E11.9 - Type 2 diabetes mellitus without complications, E78.5 - Hyperlipidemia, unspecified, I10 - Essential (primary) hypertension Hemoglobin A1c 3 Months D64.9 - Anemia, unspecified, E11.9 - Type 2 diabetes mellitus without complications, E78.5 - Hyperlipidemia, unspecified, I10 - Essential (primary) hypertension AMB Fecal Immunochemical Test Today Z12.11 - Encounter for screening for malignant neoplasm of colon, Z12.12 - Encounter for screening for malignant neoplasm of rectum Comprehensive [place]. Panel Fast 3 Months D64.9 - Anemia, unspecified, E11.9 - Type 2 diabetes mellitus without complications, E78.5 - Hyperlipidemia, unspecified, I10 - Essential (primary) hypertension Medications: New sitagliptin phosphate (Januvia) 100 mg orally in AM; 90 tabs 2RF Coding Level of Care Code Est Pt Prev Care >65y(31622) Diagnoses HTN (hypertension) I10 Hyperlipidemia E78.5 Type 2 diabetes mellitus E11.9 Anemia D64.9 Osteoporosis M81.0
[2023-12-01 13:02] VITALS: BP 100/60
== END 2023-12-01 13:56 | disposition home or self-care (01) ==
PROVIDERS: Visit Provider Internal Medicine
DX: Z00.00 Encounter for general adult medical examination without abnormal findings (principal); E11.9 Type 2 diabetes mellitus without complications; I10 Essential (primary) hypertension; E78.5 Hyperlipidemia, unspecified; D64.9 Anemia, unspecified; M81.0 Age-related osteoporosis without current pathological fracture
CPT/HCPCS: 99397

== ENCOUNTER 2023-12-15 13:20 | Outpatient (REF) | payer OTHER, SELFPAY ==
--- NOTE | ~2023-12-15 | XR_ITS ---
EXAMINATION: XR KNEE, LEFT CLINICAL INFORMATION: Effusion, left knee COMPARISON: Same-day right knee TECHNIQUE: AP view of the left knee This is a limited exam due to the patient's refusal. Patient not cooperative, with mental disabilities. FINDINGS: The bones are diffusely demineralized. There is soft tissue swelling about the knee, particularly medially. The bones are intact. Alignment is anatomic. Mild narrowing of the medial and lateral joint compartments without associated osteophytes. No abnormal soft tissue calcification. In the absence of the lateral view, knee joint effusion cannot be determined. XR/XR knee LT 1V IMPRESSION: 1. The bones are diffusely demineralized. 2. No acute bony abnormality. 3. Soft tissue swelling about the knee, particularly medially.
--- NOTE | ~2023-12-15 | XR_ITS ---
EXAMINATION: XR KNEE, RIGHT CLINICAL INFORMATION: Effusion, right knee COMPARISON: Same-day left knee TECHNIQUE: AP view of the right knee There is limited exam due to patient's refusal. Patient not cooperative with mental disabilities. FINDINGS: The bones are diffusely demineralized. There is soft tissue swelling about the knee, particularly medially. The bones are intact Alignment is anatomic. Mild narrowing of the medial and lateral joint compartments without associated osteophytes. No abnormal soft tissue calcification. In the absence of the lateral view, knee joint effusion cannot be determined. XR/XR knee RT 1V IMPRESSION: 1. The bones are diffusely demineralized. 2. No acute bony abnormality. 3. Soft tissue swelling about the knee, particularly medially.
== END 2023-12-15 13:21 | disposition home or self-care (01) ==
LOC: HO.HMGCX 13:20
PROVIDERS: PCP Internal Medicine; Visit Provider Internal Medicine
DX: M25.461 Effusion, right knee (principal); M25.462 Effusion, left knee
CPT/HCPCS: 73560

== ENCOUNTER 2023-12-23 10:53 | Outpatient (REF) | payer OTHER, SELFPAY ==
[2023-12-23 11:25] LABS: FIT Int Ctl YES; FIT1 NEGATIVE (NEGATIVE)
== END 2023-12-23 10:54 | disposition home or self-care (01) ==
LOC: HO.HMGCLNP 10:53
PROVIDERS: Visit Provider Internal Medicine
DX: D64.9 Anemia, unspecified (principal)
CPT/HCPCS: 82274